=== PATIENT | male | born 1990 | race Caucasian/White ===

== ENCOUNTER 2017-10-12 15:20 | Inpatient (IN) | payer BC, OTHER ==
[~2017-10-12] VITALS: Wt 114.3 kg
[2017-10-12] MEDS ORDERED: ONDANSETRON 4 MG INJ IV STA (16:01)
[2017-10-12] MEDS ORDERED: SOD CHLORIDE 0.9% 1,000 ML IV STA (16:01)
[2017-10-12] MEDS ORDERED: ACETAMINOPHEN 500 MG TAB PO STA (16:01)
[2017-10-12] MEDS ORDERED: HYDROmorphONE 1 MG/ML SYG IV STA (16:01)
--- NOTE | 2017-10-12 16:08 | ERD ---
ER Documentation Chief Complaint Chief Complaint BIB EMS R. SIDED ABD PAIN W N/V/D HPI 27 year old male brought in by rescue with a history H pylori, presents emergency department with right-sided abdominal pain with fever, nausea, vomiting and diarrhea beginning yesterday. Pain is severe on the right side, sharp and achy, it is in the right upper quadrant radiating to the right lower quadrant epigastric region, patient has had a fever as well and reports multiple episodes of yellow colored vomit, no blood in the vomit. Stools have been loose, there is no blood or mucus. ROS All systems reviewed and are negative except as per history of present illness. Medications Home Meds No Active Prescriptions or Reported Meds Allergies Allergies: Coded Allergies: No Known Allergy (Unverified , 07/31/12) PMhx/Soc History of Surgery: No Anesthesia Reaction: No Hx Neurological Disorder: No Hx Respiratory Disorders: No Hx Cardiac Disorders: No Hx Psychiatric Problems: No Hx Miscellaneous Medical Probl: No Hx Alcohol Use: No Hx Substance Use: No Hx Tobacco Use: No Physical Exam Vitals Vital Signs Date Time Temp Pulse Resp B/P Pulse Ox O2 Delivery O2 Flow Rate FiO2 10/12/17 15:24 101.0 98 20 142/84 97 Physical Exam General: Well-developed, well-nourished. The patient appears in no acute distress. HEENT: Head is normocephalic, atraumatic. No scleral icterus. Neck: Supple. Nontender. Lungs: Clear to auscultation. Normal air movement. Heart: Regular rate and rhythm. S1 and S2 are normal. No murmurs, gallops, or rubs. Abdomen: Soft, diffuse tenderness on the right side, greater in the right lower quadrant, nondistended. Bowel sounds are normoactive. There is no hepatosplenomegaly Extremities: No clubbing or cyanosis. Normal pulses. Moving extremities x 4. No weakness. Neurologic: Alert and oriented 3. No focal deficits. Skin: Normal turgor. No rash or lesions. Result Diagram: 10/12/17 2015 10/12/17 1655 Results 24 hrs Laboratory Tests Test 10/12/17 16:55 White Blood Count 12.310^3/ul Red Blood Count 4.6710^6/ul Hemoglobin 14.8g/dl Hematocrit 44.5% Mean Corpuscular Volume 95.3fl Mean Corpuscular Hemoglobin 31.7pg Mean Corpuscular Hemoglobin Concent 33.3g/dl Red Cell Distribution Width 12.7% Platelet Count 58394^3/UL Mean Platelet Volume 9.6fl Neutrophils % 90.9% Lymphocytes % 5.7% Monocytes % 2.9% Eosinophils % 0.0% Basophils % 0.2% Nucleated Red Blood Cells % 0.0/100WBC Neutrophils # 11.110^3/ul Lymphocytes # 0.710^3/ul Monocytes # 0.410^3/ul Eosinophils # 0.010^3/ul Basophils # 0.010^3/ul Nucleated Red Blood Cells # 0.010^3/ul Sodium Level 141mmol/L Potassium Level 4.2mmol/L Chloride Level 100mmol/L Carbon Dioxide Level 29mmol/L Anion Gap 16 Blood Urea Nitrogen 12mg/dl Creatinine 0.94mg/dl Glucose Level 135mg/dl Calcium Level 9.4mg/dl Total Bilirubin 0.9mg/dl Direct Bilirubin 0.00mg/dl Indirect Bilirubin 0.9mg/dl Aspartate Amino Transf (AST/SGOT) 22IU/L Alanine Aminotransferase (ALT/SGPT) 38IU/L Alkaline Phosphatase 80IU/L Total Protein 7.5g/dl Albumin 4.5g/dl Globulin 3.00g/dl Albumin/Globulin Ratio 1.50 Lipase 54U/L Current Medications Medications (Trade) Dose Ordered Sig/Janeen Route PRN Reason Start Time Stop Time Status Last Admin Dose Admin Sodium Chloride (NS) 1,000 ml @ 1,000 mls/hr Q1H STAT IV 10/12/17 16:01 10/12/17 17:00 DC 10/12/17 16:53 Hydromorphone HCl (Dilaudid) 1 mg ONCE STAT IV 10/12/17 16:01 10/12/17 16:04 DC 10/12/17 16:51 Ondansetron HCl (Zofran Inj) 4 mg ONCE STAT IV 10/12/17 16:01 10/12/17 16:04 DC 10/12/17 16:51 Acetaminophen 1000 mg 1,000 mg ONCE STAT PO 10/12/17 16:01 10/12/17 16:04 DC 10/12/17 16:51 Ampicillin Sodium/ Sulbactam Sodium 100 ml @ 100 mls/hr ONCE ONCE IVPB 10/12/17 18:30 10/12/17 19:29 Sodium Chloride 1,000 ml @ 1,000 mls/hr Q1H ONCE IV 10/12/17 18:30 10/12/17 19:29 Sodium Chloride 1,000 ml @ 1,000 mls/hr Q1H ONCE IV 10/12/17 18:30 10/12/17 19:29 Sodium Chloride (NS) 250 ml @ 250 mls/hr Q1H ONCE IV 10/12/17 18:30 10/12/17 19:29 DIAGNOSTIC IMAGING REPORT Patient: NEEL LUJAN : 1990 Age: 27 Sex: M MR #: [id number] DOS: 10/12/17 1601 Ordering MD: GERTRUDE YANEZ PA-C Location: [facility] Room/Bed: PROCEDURE: CT abdomen and pelvis without contrast. CLINICAL INDICATION: Right-sided abdominal pain. TECHNIQUE: CT of the abdomen and pelvis was performed without contrast. Coronal and sagittal reformatted images were obtained from the axial source images. Images were reviewed on a high-resolution PACS workstation. The total exam CTDI equals 23.43 mGy and the total exam DLP equals 1551.91 mGy-cm. DICOM images are available. Evaluation is partially limited due to artifact from the patient's arms being at the patient's side. One or more of the following dose reduction techniques were used: - Automated exposure control. - Adjustment of the mA and/or kV according to patient size. - Use of iterative reconstruction technique. COMPARISON: None available. FINDINGS: Visualized lower thorax: The visualized lung bases are clear. The visualized heart is unremarkable. Hepatobiliary system and spleen: The liver is grossly unremarkable. There is no intra or extrahepatic biliary ductal dilatation. The gallbladder is distended and there is gallbladder wall thickening with pericholecystic inflammatory change and fluid, consistent with cholecystitis. The spleen is grossly unremarkable. The pancreas is grossly unremarkable. Adrenal glands and genitourinary system: The adrenal glands are grossly unremarkable. There is no nephrolithiasis or hydronephrosis. The urinary bladder is grossly unremarkable. The prostate gland and seminal vesicles are grossly unremarkable. Gastrointestinal system: There is colonic wall thickening at the hepatic flexure adjacent to the gallbladder, likely reactive in nature. There is no evidence of bowel obstruction. The appendix is mildly dilated measuring 8 mm in diameter in the right lower quadrant without focal periappendiceal inflammatory change. Peritoneum, vascular, and lymphatics: There is no free intraperitoneal air. There is inflammatory change in the right midabdomen mesentery with a small amount of free fluid layering within the pelvis, possibly reactive in nature. No focal drainable collection is seen within the abdomen or pelvis. There are enlarged periportal and portacaval lymph nodes, likely reactive in nature. The aorta is nonaneurysmal. Musculoskeletal system and soft tissues: There are multiple small Schmorl's nodes throughout the thoracic and lumbar spine. There are no concerning osseous lesions. The soft tissues are unremarkable. IMPRESSION: 1. Distended gallbladder demonstrating wall thickening and pericholecystic inflammatory change. This constellation of findings is highly suspicious for acute cholecystitis. Right upper quadrant ultrasound is recommended for confirmation. 2. Inflammatory change in the right midabdomen mesentery with a small volume of free fluid layering within the pelvis, likely reactive in nature. Thickening of the colon at the hepatic flexure adjacent to the gallbladder, also likely reactive in nature. 3. Nonspecific mild dilatation of the appendix measuring 8 mm in diameter without focal periappendiceal inflammatory change. Correlation with physical exam is recommended. 4. Periportal and portacaval adenopathy, likely reactive in nature. These findings discussed with Ada Zapata NP in the ED at 1809 hours on 2016. RPTAT: HLBP .Umberto Ogden MD, MD Date Time Electronically viewed and signed by .Umberto Ogden MD, MD on 10/12/2017 18:15 .P/ Procedures/MDM ED course: Patient blood work and urine were obtained. Patient was kept n.p.o. and was given Dilaudid 1 mg, Zofran 4 mg and a fluid bolus of normal saline 1 L. Was then ordered Unasyn, as well as the remaining fluids to receive a total of 2550cc Medical decision makin-year-old female presents with right-sided abdominal pain with fever, nausea, vomiting diarrhea starting yesterday. Patient called rescue due to severe pain. Patient has evidence of acute cholecystitis on the CT abdomen and pelvis, the appendix is mildly developed rotated at 8 mm, without evidence of periappendiceal changes. He does have right lower quadrant tenderness, will consult surgery for this. The patient will be admitted for surgical evaluation. Patient's admission further care will be signed out to my attending physician, Dr. Tinoco Departure Diagnosis: Primary Impression: Acute cholecystitis Additional Impression: Leukocytosis Condition: Stable GERTRUDE YANEZ PA-C Oct 12, 2017 16:08
[2017-10-12 17:08] LABS: BASOPHILS % 0.2 % (0.0-2.0); HEMATOCRIT 44.5 % (42.0-52.0); HEMOGLOBIN 14.8 g/dl (14.0-18.0); LYMPHOCYTES # 0.7 10^3/ul (0.8-2.9); LYMPHOCYTES % 5.7 % (15.0-51.0); MEAN CORPUSCULAR HEMOGLOBIN 31.7 pg (29.0-33.0); MEAN CORPUSCULAR HGB CONC 33.3 g/dl (32.0-37.0); MEAN CORPUSCULAR VOLUME 95.3 fl (82.0-101.0); MEAN PLATELET VOLUME 9.6 fl (7.4-10.4); MONOCYTE # 0.4 10^3/ul (0.3-0.9); MONOCYTES % 2.9 % (0.0-11.0); NEUTROPHIL # 11.1 10^3/ul (1.6-7.5); NEUTROPHILS % 90.9 % (39.0-77.0); PLATELET COUNT 283 10^3/UL (140-415); RED BLOOD COUNT 4.67 10^6/ul (4.70-6.10); RED CELL DISTRIBUTION WIDTH 12.7 % (11.5-14.5); WHITE BLOOD COUNT 12.3 10^3/ul (4.8-10.8)
[2017-10-12 17:27] LABS: ALBUMIN 4.5 g/dl (3.3-4.9); ALBUMIN/GLOBULIN RATIO 1.5; BILIRUBIN,INDIRECT 0.9 mg/dl (0-1.1); BILIRUBIN,TOTAL 0.9 mg/dl (0.2-1.3); CALCIUM 9.4 mg/dl (8.4-10.2); CREATININE 0.94 mg/dl (0.61-1.24); POTASSIUM 4.2 mmol/L (3.5-5.1); TOTAL PROTEIN 7.5 g/dl (6.1-8.1)
--- NOTE | 2017-10-12 18:16 | RADRPT ---
PROCEDURE: CT abdomen and pelvis without contrast. CLINICAL INDICATION: Right-sided abdominal pain. TECHNIQUE: CT of the abdomen and pelvis was performed without contrast. Coronal and sagittal reform atted images were obtained from the axial source images. Images were reviewed on a high-resolution [employer] workstation. The total exam CTDI equals 23.43 mGy and the total exam DLP equals 1551.91 mGy-cm. DICOM images are available. Evaluation is partially limited due to artifact from the patient's arms being at the patient's side. One or more of the following dose reduction techniques were used: - Automated exposure control. - Adjustment of the mA and/or kV according to patient size. - Use of iterative reconstruction technique. COMPARISON: None available. FINDINGS: Visualized lower thorax: The visualized lung bases are clear. The visualized heart is unremarkable. Hepatobiliary system and spleen: The liver is grossly unremarkable. There is no intra or extrahepat ic biliary ductal dilatation. The gallbladder is distended and there is gallbladder wall thickening with pericholecystic inflammatory change and fluid, consistent with cholecystitis. The spleen is lynsey ssly unremarkable. The pancreas is grossly unremarkable. Adrenal glands and genitourinary system: The adrenal glands are grossly unremarkable. There is no n ephrolithiasis or hydronephrosis. The urinary bladder is grossly unremarkable. The prostate gland an d seminal vesicles are grossly unremarkable. Gastrointestinal system: There is colonic wall thickening at the hepatic flexure adjacent to the ga llbladder, likely reactive in nature. There is no evidence of bowel obstruction. The appendix is mil dly dilated measuring 8 mm in diameter in the right lower quadrant without focal periappendiceal inf lammatory change. Peritoneum, vascular, and lymphatics: There is no free intraperitoneal air. There is inflammatory c hange in the right midabdomen mesentery with a small amount of free fluid layering within the pelvis , possibly reactive in nature. No focal drainable collection is seen within the abdomen or pelvis. T here are enlarged periportal and portacaval lymph nodes, likely reactive in nature. The aorta is non aneurysmal. Musculoskeletal system and soft tissues: There are multiple small Schmorl's nodes throughout the th oracic and lumbar spine. There are no concerning osseous lesions. The soft tissues are unremarkable. IMPRESSION: 1. Distended gallbladder demonstrating wall thickening and pericholecystic inflammatory change. Thi s constellation of findings is highly suspicious for acute cholecystitis. Right upper quadrant ultra sound is recommended for confirmation. 2. Inflammatory change in the right midabdomen mesentery with a small volume of free fluid layering within the pelvis, likely reactive in nature. Thickening of the colon at the hepatic flexure adjace nt to the gallbladder, also likely reactive in nature. 3. Nonspecific mild dilatation of the appendix measuring 8 mm in diameter without focal periappendi ceal inflammatory change. Correlation with physical exam is recommended. 4. Periportal and portacaval adenopathy, likely reactive in nature. These findings discussed with Ada Zapata NP in the ED at 1809 hours on 10/12/2017. RPTAT: HLBP .Umberto Ogden MD, MD Date Time Electronically viewed and signed by .Umberto Ogden MD, on 10/12/2017 18:15 .P/
[2017-10-12] MEDS ORDERED: SOD CHLORIDE 0.9% 1,000 ML IV ONE ×2 (18:30)
[2017-10-12] MEDS ORDERED: AMPICILLIN/SULB 3 GM/NS (PMX) 100 ML IVPB ONE (18:30)
[2017-10-12] MEDS ORDERED: SOD CHLORIDE 0.9% 250 ML IV ONE (18:30)
[2017-10-12 19:17] LABS: ADD UMIC YES; UR ASCORBIC ACID NEGATIVE (NEGATIVE); UR BILIRUBIN (Dip) NEGATIVE (NEGATIVE); UR BLOOD (Dip) 2+ mg/dL (NEGATIVE); UR CLARITY SLIGHTLY CLOUDY (CLEAR); UR COLOR YELLOW (YELLOW); UR GLUCOSE (Dip) NEGATIVE (NEGATIVE); UR KETONES (Dip) NEGATIVE (NEGATIVE); UR LEUKOCYTE ESTERASE (Dip) NEGATIVE Leu/ul (NEGATIVE); UR MUCUS MANY /HPF (NONE SEEN); UR NITRITE (Dip) NEGATIVE (NEGATIVE); UR RBC 15 /HPF (0-5); UR SPECIFIC GRAVITY (Dip) 1.021 (1.003-1.030); UR TOTAL PROTEIN (Dip) NEGATIVE (NEGATIVE); UR UROBILINOGEN (Dip) NEGATIVE (NEGATIVE)
--- NOTE | 2017-10-12 19:18 | RADRPT ---
PROCEDURE: XR Chest. CLINICAL INDICATION: Preop evaluation. TECHNIQUE: Single frontal view of the chest was obtained COMPARISON: None FINDINGS: The heart and mediastinum are within normal limits. The lungs are clear. There is no pleural effusion or pneumothorax. The osseous structures are unremarkable. IMPRESSION: 1. No acute cardiopulmonary disease. RPTAT:AAJJ Physician Man Date Time Electronically viewed and signed by Tanmay Parikh Physician on 10/12/2017 19:17 QL/
[2017-10-12] MEDS ORDERED: ONDANSETRON 4 MG INJ IV PRN ×2 (19:30→21:00)
[2017-10-12] MEDS ORDERED: ACETAMINOPHEN 325 MG TAB PO PRN ×2 (19:30→21:00)
--- NOTE | 2017-10-12 19:39 | QN ---
Documentation Comment My independent concise history is abdominal pain in the right upper and right lower quadrant. My pertinent physical exam findings are right-sided abdominal pain. The plan is admission to the panel team and consultation with Dr. Tirado who is a surgeon on-call. RENUKA BONE MD Oct 12, 2017 19:39
[2017-10-12 21:00] VITALS: TEMP 101.6
[2017-10-12] MEDS ORDERED: HYDROmorphONE 0.5 MG/0.5 ML SYG IV PRN (21:00)
[2017-10-12] MEDS ORDERED: NACL 0.9% 3 ML SYG IV SCH (21:00)
[2017-10-12] MEDS: SOD CHLORIDE 0.9% 1,000 ML IV SCH (22:02)
--- NOTE | 2017-10-12 23:39 | HP ---
Date/Time of Note Date/Time of Note DATE: 10/12/17 TIME: 23:38 Assessment/Plan VTE Prophylaxis VTE Prophylaxis Intervention: SCD's Assessment/Plan Chief Complaint/Hosp Course This is a 27-year-old male being admitted to the [facility] floor for: #1 acute cholecystitis: zosyn 3.375 q6hrs, received unasyn in the ed. Keep patient NPO, zofran for nausea, IV fluid maintenance with normal saline, dilaudid IV for pain control. Dr. Tirado consulted via the ED for surgery. #2 obesity: Check hemoglobin A1c, TSH, lipid panel #3 DVT GI prophylaxis: SCDs, no GI prophylaxis indicated Further treatment strategy will be implemented as per the clinical course Problems: HPI/ROS Admit Date/Time Admit Date/Time Oct 12, 2017 at 19:18 Hx of Present Illness cc: abdominal pain This is a 27 year old male brought in by rescue with a history H pylori, presents emergency department with right-sided abdominal pain with fever, nausea , vomiting and diarrhea beginning thursday. Pain is severe on the right side, sharp and achy, it is in the right upper quadrant radiating to the right lower quadrant epigastric region, patient has had a fever as well and reports multiple episodes of yellow colored vomit, no blood in the vomit. Stools have been loose, there is no blood or mucus. allergies: nkda meds: none ROS Const: As per HPI Eyes : No pain discharge or redness or change in visual acuity ENT: No pain, sore throat, congestion, congestion, dysphagia or discharge Respiratory: No shortness of breath, cough, sputum, wheezing, or pleuritic pain Cardiovascular: No chest pain, palpitation, PND, or edema GI : As per HPI Genitourinary: No dysuria, hematuria, flank pain , discharge or CVA tenderness Musculoskeletal: No joint pain, back pain, neck pain, restricted range of motion in neck or joints Skin: No rash, bruising or hives Neuro: No headache, dizziness, syncope, seizure, focal weakness Endocrine: No polyuria, polydipsia, temperature intolerance Psych: No hallucination, depression, anxiety or suicidal ideation PMH/Family/Social Past Medical History Medical History: no pertinent history Past Surgical History Past Surgical Hx: no surgical history Family History Significant Family History: no pertinent family hx Social History Alcohol Use: occasionally Smoking Status: Never smoker Drug Use: none Exam/Review of Systems Vital Signs Vitals Vital Signs Date Time Temp Pulse Resp B/P Pulse Ox O2 Delivery O2 Flow Rate FiO2 10/12/17 21:00 101.6 111 18 123/66 100 Room Air Exam Exam General: Patient is a well-developed male lying in bed in abdominal pain HEENT: Atraumatic, normocephalic. The pupils are equal, round and reactive. Extraocular motor are intact Neck: Supple with full range of motion. No rigidity or meningismus Chest: Nontender Lungs: Clear to auscultation bilaterally no crackles rales or wheezing Heart: Normal S1-S2, Regular rhythm and rate. No murmur, S3, or S4 Abdomen: Soft, tender to palpation of the right upper quadrant, nondistended, normal bowel sounds. Extremities: Normal to inspection, no edema no cyanosis Neurologic: Normal mental status, speech normal, cranial nerves II through XII are intact, motor and sensory are intact, no focal weakness Additional Comments PROCEDURE: CT abdomen and pelvis without contrast. CLINICAL INDICATION: Right-sided abdominal pain. TECHNIQUE: CT of the abdomen and pelvis was performed without contrast. Coronal and sagittal reformatted images were obtained from the axial source images. Images were reviewed on a high-resolution PACS workstation. The total exam CTDI equals 23.43 mGy and the total exam DLP equals 1551.91 mGy-cm. DICOM images are available. Evaluation is partially limited due to artifact from the patient's arms being at the patient's side. One or more of the following dose reduction techniques were used: - Automated exposure control. - Adjustment of the mA and/or kV according to patient size. - Use of iterative reconstruction technique. COMPARISON: None available. FINDINGS: Visualized lower thorax: The visualized lung bases are clear. The visualized heart is unremarkable. Hepatobiliary system and spleen: The liver is grossly unremarkable. There is no intra or extrahepatic biliary ductal dilatation. The gallbladder is distended and there is gallbladder wall thickening with pericholecystic inflammatory change and fluid, consistent with cholecystitis. The spleen is grossly unremarkable. The pancreas is grossly unremarkable. Adrenal glands and genitourinary system: The adrenal glands are grossly unremarkable. There is no nephrolithiasis or hydronephrosis. The urinary bladder is grossly unremarkable. The prostate gland and seminal vesicles are grossly unremarkable. Gastrointestinal system: There is colonic wall thickening at the hepatic flexure adjacent to the gallbladder, likely reactive in nature. There is no evidence of bowel obstruction. The appendix is mildly dilated measuring 8 mm in diameter in the right lower quadrant without focal periappendiceal inflammatory change. Peritoneum, vascular, and lymphatics: There is no free intraperitoneal air. There is inflammatory change in the right midabdomen mesentery with a small amount of free fluid layering within the pelvis, possibly reactive in nature. No focal drainable collection is seen within the abdomen or pelvis. There are enlarged periportal and portacaval lymph nodes, likely reactive in nature. The aorta is nonaneurysmal. Musculoskeletal system and soft tissues: There are multiple small Schmorl's nodes throughout the thoracic and lumbar spine. There are no concerning osseous lesions. The soft tissues are unremarkable. IMPRESSION: 1. Distended gallbladder demonstrating wall thickening and pericholecystic inflammatory change. This constellation of findings is highly suspicious for acute cholecystitis. Right upper quadrant ultrasound is recommended for confirmation. 2. Inflammatory change in the right midabdomen mesentery with a small volume of free fluid layering within the pelvis, likely reactive in nature. Thickening of the colon at the hepatic flexure adjacent to the gallbladder, also likely reactive in nature. 3. Nonspecific mild dilatation of the appendix measuring 8 mm in diameter without focal periappendiceal inflammatory change. Correlation with physical exam is recommended. 4. Periportal and portacaval adenopathy, likely reactive in nature. These findings discussed with Ada Zapata NP in the ED at 1809 hours on 2016. RPTAT: HLBP .Umberto Ogden MD, MD Date Time Electronically viewed and signed by .Umberto Ogden MD, MD on 10/12/2017 18:15 .P/ CC: GERTRUDE YANEZ PA-C PROCEDURE: XR Chest. CLINICAL INDICATION: Preop evaluation. TECHNIQUE: Single frontal view of the chest was obtained COMPARISON: None FINDINGS: The heart and mediastinum are within normal limits. The lungs are clear. There is no pleural effusion or pneumothorax. The osseous structures are unremarkable. IMPRESSION: 1. No acute cardiopulmonary disease. RPTAT:AAJJ Tanmay Parikh Physician Date Time Electronically viewed and signed by Tanmay Parikh Physician on 10/12/2017 19:17 QL/ CC: GERTRUDE YANEZ PA-C Labs Result Diagram: 10/12/17165410/12/171654 Medications Medications Current Medications Sodium Chloride (NS) 1,000 ml @ 80 mls/hr [id number] IV Last administered on 22:02; Admin Dose 80 MLS/HR; Start 10/12/17 at 20:32 Ondansetron HCl (Zofran Inj) 4 mg Q6H PRN IV NAUSEA AND/OR VOMITING; Start at 21:00 Acetaminophen (Tylenol Tab) 650 mg Q6H PRN PO PAIN LEVEL 1-3 OR FEVER; Start 10/12/17 at 21:00 Hydromorphone HCl (Dilaudid) 0.5 mg Q4H PRN IV SEVERE PAIN LEVEL 7-10 Last administered on 10/12/17 21:07; Admin Dose 0.5 MG; Start 10/12/17 at 21:00 Pantoprazole 40 mg 40 mg DAILY@06 IV ; Start 10/13/17 at 06:00 Piperacillin Sod/ Tazobactam Sod (Zosyn 3.375gm/ 50 ml (Pmx)) 50 ml @ 100 mls/ hr Q6 IVPB ; Start 10/13/17 at 00:00 SUE DUMONT Oct 12, 2017 23:39
[2017-10-13] VITALS (27 sets, daily range): BP systolic 109–132; BP diastolic 54–78; PULSE 83–117; RESP 14–23
[2017-10-13] MEDS: HYDROmorphONE 1 MG/ML SYG IV PRN ×4 (00:12→21:32)
[2017-10-13] MEDS ORDERED: HYDROmorphONE 1 MG/ML SYG ONE (00:15)
[2017-10-13] MEDS: PIPER-TAZO 3.375 GM IV (PMX) 50 ML IVPB SCH ×4 (00:44→19:45)
[2017-10-13 05:17] LABS: BASOPHILS % 0.2 % (0.0-2.0); HEMATOCRIT 37.7 % (42.0-52.0); HEMOGLOBIN 12.6 g/dl (14.0-18.0); LYMPHOCYTES # 0.7 10^3/ul (0.8-2.9); MEAN CORPUSCULAR HEMOGLOBIN 31.9 pg (29.0-33.0); MEAN CORPUSCULAR HGB CONC 33.4 g/dl (32.0-37.0); MEAN CORPUSCULAR VOLUME 95.4 fl (82.0-101.0); MONOCYTE # 0.9 10^3/ul (0.3-0.9); MONOCYTES % 7.4 % (0.0-11.0); NEUTROPHIL # 10.6 10^3/ul (1.6-7.5); PLATELET COUNT 205 10^3/UL (140-415); RED BLOOD COUNT 3.95 10^6/ul (4.70-6.10); RED CELL DISTRIBUTION WIDTH 12.5 % (11.5-14.5); WHITE BLOOD COUNT 12.4 10^3/ul (4.8-10.8)
[2017-10-13 05:43] LABS: ALBUMIN 3.4 g/dl (3.3-4.9); ALBUMIN/GLOBULIN RATIO 1.06; BILIRUBIN,INDIRECT 1.1 mg/dl (0-1.1); BILIRUBIN,TOTAL 1.1 mg/dl (0.2-1.3); CALCIUM 8.5 mg/dl (8.4-10.2); CREATININE 0.99 mg/dl (0.61-1.24); MAGNESIUM 1.2 mg/dl (1.7-2.5); POTASSIUM 4.3 mmol/L (3.5-5.1); TOTAL PROTEIN 6.6 g/dl (6.1-8.1)
[2017-10-13] MEDS ORDERED: PANTOPRAZOLE 40 MG INJ IV SCH (06:00)
[2017-10-13 06:08] LABS: THYROID STIMULATING HORMONE 0.467 MIU/L (0.465-4.680)
[2017-10-13] MEDS ORDERED: HYDROmorphONE 1 MG/ML SYG IV STA (06:08)
[2017-10-13] MEDS ORDERED: HYDROmorphONE 1 MG/ML SYG IV PRN (09:00)
[2017-10-13] MEDS: SOD CHLORIDE 0.9% 1,000 ML IV SCH (09:02)
[2017-10-13] MEDS ORDERED: PROPOFOL 20 ML ONE (09:46)
[2017-10-13] MEDS ORDERED: MIDAZOLAM 1 MG/ML 2 ML INJ ONE (09:46)
[2017-10-13] MEDS ORDERED: ONDANSETRON 4 MG INJ ONE (09:46)
[2017-10-13] MEDS ORDERED: ROCURONIUM 50 MG INJ ONE ×2 (09:46→10:37)
[2017-10-13] MEDS ORDERED: METOCLOPRAMIDE 10 MG INJ ONE (09:46)
[2017-10-13] MEDS ORDERED: FENTAnyl 50 MCG/ML VIAL ONE (09:47)
[2017-10-13] MEDS ORDERED: PIPER-TAZO 3.375 GM IV (PMX) 100 ML ONE (09:48)
--- NOTE | 2017-10-13 09:52 | HPN ---
Date/Time of Note Date/Time of Note DATE: 10/13/17 TIME: 09:52 Interval H&P Admission Note Pt. seen H&P reviewed: No system changes Pt. seen H&P reviewed. No system changes (I attest that I have seen and examined the patient and reviewed the operation in detail, as well as its risks , benefits and alternatives of the operation). I attest that I have seen and examined the patient and reviewed in detail the operation, and its associated risks, benefits and alternative. I have answered all the patient's questions to the best of my ability and the patient wishes to proceed. Please refer to rest of electronic medical record for additional updates. TAL ACKERMAN M.D. Oct 13, 2017 09:52
--- NOTE | 2017-10-13 09:52 | CONS ---
Date/Time of Note Date/Time of Note DATE: 10/13/17 TIME: 09:52 Assessment/Plan Assessment/Plan Additional Assessment/Plan [facility] IN[facility]IENT CONSULTATION NOTE DATE OF SERVICE: 10/13/2017 PLACE OF SERVICE: [facility], preoperative area ASSESSMENT AND PLAN: A very-pleasant 27-year-old gentleman with comorbidity of BMI 35, presenting with severe acute cholecystitis. I recommended and obtained patient's consent for laparoscopic, possible open cholecystectomy. Answered all questions. Patient and his mother appear to understand and agreed with plans. With above assessment, I've recommended the followin. To the operating room for above Thank you very much for having me involved in the care of this very pleasant patient and wonderful family. If you have any questions, please feel free to contact me at [phone]. Nature of presenting problem: High severity Please note that, given the multiple number of diagnoses or management options, the moderate amount and/or complexity of data needed to be reviewed, and high risk of complications and/or morbidity or mortality, this qualifies as moderate complexity type of decision-making. Disclaimers: 1. Inadvertent spelling and grammatical errors are likely due to electronic health record (EHR)/dictation software used and do not reflect on the quality of delivered patient care. 2. The electronic timestamp recorded on this note does not necessarily reflect the actual date and time of the visit or the service. 3. Portions of this note may have been created through electronic templates and computer algorithms that might bring in information either from the system or from other physicians and providers. Please note that such information may or may not contain errors, the occurrence of which are outside of my control. In general (but not always) this happens either in the beginning or at the end of the note. The portion of the note that I have created are generally done in 1 continuous block of text, flanked at the beginning and at the end by " ", and entered into one field in the EHR. 4. There may be other unanticipated errors in the note that are outside of my control. I can only attest to the portions of the note that I have created. Updated clinical summary: Very pleasant 27-year-old gentleman with comorbidity of BMI 35, admitted through the emergency department at [facility] on 10/12/2017 with acute cholecystitis. Comorbidities: 1. BMI 35. CONSULTATION REQUESTED BY: Cely Garcia MD HISTORY OF PRESENT ILLNESS: The patient is a very pleasant 27-year-old gentleman with above-mentioned BMI of 35 who presented and was admitted through the emergency department at [facility] on 10/12/2017 with diagnosis of acute cholecystitis. Patient started having pain about 3-4 days ago and was seen by an urgent care clinic that diagnosed him with possible reflux disease or peptic ulcer disease and was given pain medications and antimicrobials. He did improve but then worsened and was admitted through the emergency department after his laboratory values demonstrated elevated white blood cell count and his CT scan showed evidence for acute cholecystitis. I met with the patient in the preoperative area. Patient was accompanied by his mother. He reported having ongoing pain in the right upper quadrant which seemed to have improved with intervention overnight. Pain was still present. No significant radiation. Associated nausea and vomiting which was nonbloody and minor chills. No changes in bowel or bladder habits. No blood in the stool or urine. No other major complaints. No prior episodes of similar pain in the past. ALLERGIES: NO KNOWN DRUG ALLERGIES MEDICATIONS Documented in the electronic records and reviewed by me. Please see the electronic records for details, as well as details for inpatient medications which were also reviewed by me. SOCIAL HISTORY: The patient lives with family. 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 REVIEW OF SYSTEMS: Other than mentioned above, there were no other pertinent positives or pertinent negatives in an otherwise complete 14 point review of systems. PHYSICAL EXAMINATION GENERAL: The patient appears to be a very pleasant gentleman of descent lying in bed, appearing stated age, and otherwise in no acute distress. BMI: 35 VITAL SIGNS: AVSS (please also see auto important data if available as well as the electronic records) HEENT: Normocephalic and atraumatic. Extraocular muscles and hearing are grossly intact bilaterally and symmetrically. Sclerae are nonicteric. Oral cavity is clear; oral mucosa appear to be pink and moist. Dentition: fair. NECK: Supple. There is no lymphadenopathy or JVD. There is no submental, submandibular or supraclavicular lymphadenopathy. CHEST: Rises symmetrically with each breath; patient is breathing comfortably. There are no audible wheezes, rales or rhonchi on the gross exam. HEART: Pulse is regular and palpable on the right wrist. Capillary refill is normal. Carotid pulses are palpable bilaterally and symmetrically in the neck. EXTREMITIES: Lower extremities contain no pitting edema around the ankles bilaterally and symmetrically. ABDOMEN: Abdomen is soft, mild to moderately tender in the right upper quadrant and nondistended. No evidence of ascites, organomegaly, caput medusae , engorged subcutaneous veins, or other abnormalities. There are no peritoneal signs or guarding. SKIN: Appears to be pink and feels warm to touch. NEUROLOGIC: Awake, alert, and follows commands appropriately. LABORATORY DATA: See below IMAGING: See electronic chart. Please note that I've personally reviewed all pertinent available images and I agree in general with their overall reported findings. Consultation Date/Type/Reason Admit Date/Time Oct 12, 2017 at 19:18 Past Medical History Medical History: no pertinent history Past Surgical History Past Surgical Hx: no surgical history Social History Alcohol Use: occasionally Smoking Status: Never smoker Drug Use: none Exam/Review of Systems Vital Signs Vitals Vital Signs Date Time Temp Pulse Resp B/P Pulse Ox O2 Delivery O2 Flow Rate FiO2 10/13/17 08:31 100.3 113 18 112/61 94 10/12/17 21:00 Room Air Intake and Output 10/12/17 10/12/17 10/13/17 15:00 23:00 07:00 Intake Total 100 ml Balance 100 ml Results Result Diagram: 10/13/17 0447 10/13/17 0447 Results 24 hrs Laboratory Tests Test 10/12/17 16:55 10/12/17 18:58 10/12/17 19:40 10/13/17 04:47 White Blood Count 12.3 H 12.4 H Red Blood Count 4.67 L 3.95 L Hemoglobin 14.8 12.6 L Hematocrit 44.5 37.7 L Mean Corpuscular Volume 95.3 95.4 Mean Corpuscular Hemoglobin 31.7 31.9 Mean Corpuscular Hemoglobin Concent 33.3 33.4 Red Cell Distribution Width 12.7 12.5 Platelet Count 283 205 # Mean Platelet Volume 9.6 10.0 Neutrophils % 90.9 H 86.0 H Lymphocytes % 5.7 L 6.0 L Monocytes % 2.9 7.4 Eosinophils % 0.0 0.0 Basophils % 0.2 0.2 Nucleated Red Blood Cells % 0.0 0.0 Neutrophils # 11.1 H 10.6 H Lymphocytes # 0.7 L 0.7 L Monocytes # 0.4 0.9 Eosinophils # 0.0 0.0 Basophils # 0.0 0.0 Nucleated Red Blood Cells # 0.0 0.0 Sodium Level 141 142 Potassium Level 4.2 4.3 Chloride Level 100 106 Carbon Dioxide Level 29 28 Anion Gap 16 12 Blood Urea Nitrogen 12 12 Creatinine 0.94 0.99 Glucose Level 135 105 Calcium Level 9.4 8.5 Total Bilirubin 0.9 1.1 Direct Bilirubin 0.00 0.00 Indirect Bilirubin 0.9 1.1 Aspartate Amino Transf (AST/SGOT) 22 18 Alanine Aminotransferase (ALT/SGPT) 38 35 Alkaline Phosphatase 80 51 Total Protein 7.5 6.6 Albumin 4.5 3.4 # Globulin 3.00 3.20 Albumin/Globulin Ratio 1.50 1.06 Lipase 54 Urine Color YELLOW Urine Clarity SLIGHTLY CLOUDY A Urine pH 5.0 Urine Specific [place] 1.021 Urine Ketones NEGATIVE Urine Nitrite NEGATIVE Urine Bilirubin NEGATIVE Urine Urobilinogen NEGATIVE Urine Leukocyte Esterase NEGATIVE Urine Microscopic RBC 15 H Urine Microscopic WBC 4 Urine Mucus MANY A Urine Hemoglobin 2+ H Urine Glucose NEGATIVE Urine Total Protein NEGATIVE Lactic Acid Level 1.3 Hemoglobin A1c 5.0 Magnesium Level 1.2 L Triglycerides Level 40 Cholesterol Level 93 L LDL Cholesterol, Calculated 40 HDL Cholesterol 45 Cholesterol/HDL Ratio 2.0 Thyroid Stimulating Hormone (TSH) 0.467 Medications Medications Current Medications Sodium Chloride (NS) 1,000 ml @ 80 mls/hr [id number] IV Last administered on t 22:02; Admin Dose 80 MLS/HR; Start 10/12/17 at 20:32 Ondansetron HCl (Zofran Inj) 4 mg Q6H PRN IV NAUSEA AND/OR VOMITING; Start at 21:00 Acetaminophen (Tylenol Tab) 650 mg Q6H PRN PO PAIN LEVEL 1-3 OR FEVER Last administered on 10/13/17 08:55; Admin Dose 650 MG; Start 10/12/17 at 21:00 Pantoprazole 40 mg 40 mg DAILY@06 IV Last administered on 10/13/17 05:51; Admin Dose 40 MG; Start 10/13/17 at 06:00 Piperacillin Sod/ Tazobactam Sod (Zosyn 3.375gm/ 50 ml (Pmx)) 50 ml @ 100 mls/ hr Q6 IVPB Last administered on 10/13/17 05:51; Admin Dose 100 MLS/HR; Start 10/13/17 at 00:00 Hydromorphone HCl (Dilaudid) 1 mg Q3 PRN IV SEVERE PAIN LEVEL 7-10; Start at 09:00 TAL ACKERMAN M.D. Oct 13, 2017 09:52
[2017-10-13] MEDS ORDERED: ROPIVACAINE 0.5 % 30 ML VIAL ONE (09:56)
[2017-10-13] MEDS ORDERED: BUPIVACAINE 0.25% (MPF) 30 ML INJ ONE (10:20)
[2017-10-13] MEDS ORDERED: PHENYLephrine (100 MCG/ML) 5ML SYG ONE (10:34)
[2017-10-13] MEDS ORDERED: HYDROmorphONE 2 MG/ML SYG ONE (10:48)
[2017-10-13] MEDS ORDERED: METOPROLOL 5 MG INJ ONE (11:54)
[2017-10-13] MEDS ORDERED: LABETALOL HCL 20MG INJ IV PRN (12:00)
[2017-10-13] MEDS ORDERED: METOCLOPRAMIDE 10 MG INJ IV PRN (12:00)
[2017-10-13] MEDS ORDERED: MEPERIDINE 25 MG INJ IV PRN (12:00)
[2017-10-13] MEDS ORDERED: DIPHENHYDRAMINE 50 MG INJ IV PRN (12:00)
[2017-10-13] MEDS ORDERED: HYDROmorphONE (0.2 MG/ML) 10ML SYG IV PRN ×3 (12:00)
[2017-10-13] MEDS ORDERED: MAGNESIUM SULFATE 4 GM/100 ML 100 ML IVPB ONE (12:30)
[2017-10-13] MEDS ORDERED: GLYCOPYRROLATE 0.4 MG INJ ONE (12:39)
[2017-10-13] MEDS ORDERED: NEOSTIGMINE 3 MG/3 ML SYRINGE ONE (12:39)
[2017-10-13] MEDS: D5W-0.45 NACL + KCL 20 MEQ 1,000 ML IV SCH ×2 (13:51→23:51)
[2017-10-13] MEDS ORDERED: DOCUSATE SODIUM 100 MG CAP PO PRN (14:00)
[2017-10-13] MEDS ORDERED: HYDROmorphONE 0.5 MG/0.5 ML SYG IV PRN (14:00)
[2017-10-13] MEDS ORDERED: HYDROCODONE/APAP (5/325) TAB PO PRN (14:00)
[2017-10-13] MEDS ORDERED: BISACODYL 10 MG SUPP PR PRN (14:00)
--- NOTE | 2017-10-13 14:40 | OPR ---
Date/Time of Note Date/Time of Note DATE: 10/13/17 TIME: 14:39 Operative Report Free Text/Dictation [facility] INPATIENT [facility]PER[facility] PLACE OF SERVICE: [facility] DATE OF SURGERY: 10/13/2017 PREOPERATIVE DIAGNOSIS: 1. Acute cholecystitis 2. BMI 35 POSTOPERATIVE DIAGNOSIS: 1. Severe acute on chronic cholecystitis 2. BMI 35 OPERATION: 1. Laparoscopic cholecystectomy (modifier 22) 2. Laparoscopic closure of enterotomy of transverse colon SURGEON: Tal Tirado M.D. AGENT BROKER: Jones ANESTHESIA: General endotracheal tube anesthesia ANESTHESIOLOGIST: Roxanne Floyd M.D. BRIEF SUMMARY: A challenging laparoscopic cholecystectomy was performed with findings of severe acute on cholecystitis. Complication of enterotomy through transverse colon at the time of insertion of the initial trocar was noted immediately and repaired laparoscopically and layered closure. BRIEF HISTORY: The patient is a very pleasant 27-year-old gentleman with above- mentioned BMI of 35 who presented and was admitted through the emergency department at [facility] on 10/12/2017 with diagnosis of acute cholecystitis. Patient started having pain about 3-4 days ago and was seen by an urgent care clinic that diagnosed him with possible reflux disease or peptic ulcer disease and was given pain medications and antimicrobials. He did improve but then worsened and was admitted through the emergency department after his laboratory values demonstrated elevated white blood cell count and his CT scan showed evidence for acute cholecystitis. I met with the patient and family (mother) and counseled them regarding the possible options of treatment, and I strongly suggested a laparoscopic, possible open cholecystectomy. We reviewed the operation in detail as well as the risks, benefits, alternatives, and expected outcomes of this operation. After careful consideration of all the risks, benefits, and alternatives, the patient and family appeared to understand those risks and wished to proceed with surgery. For a detailed report of my consultation with patient and family, please refer to my separate consultation note. STATEMENT OF THE INFORMED CONSENT: The patient and family appeared to understand the risks of the operation to include, but not be limited to risk of postoperative pain and scar tissue, possible infection or bleeding requiring other interventions such as opening the wound, placement of drainage catheters, or other operative interventions; possible injury to surrounding to structures including bowel, bladder, bile duct, or blood vessels, or solid organs such as liver, kidney, or pancreas requiring other interventions or procedures; possible leakage of bile from surgical clip sites, suture lines, or worse, from common bile duct injury, causing significant increase in morbidity and mortality and requiring multiple interventions including but not limited to, placement of drainage catheters, imaging studies, as well as operative interventions; possible other source of sepsis such as urinary tract infections or pneumonias, or other sources of potentially life threatening problems such as deep venous thrombus formation causing pulmonary embolism, myocardial arrhythmias and infarctions, and even . After careful consideration of all their options, the patient and family appeared to understand and wished to proceed with surgery. DESCRIPTION OF PROCEDURE: After obtaining informed consent, the patient was brought into the operating room and was placed in a normal supine position, where successful general endotracheal tube anesthesia was performed. The patient 's abdominal skin was prepped and draped, from the nipple line down to the level of the groins, in the usual sterile fashion. Intravenous access was already in place, and appropriately chosen and dosed therapeutic intravenous antimicrobials were administered. We then called a surgical time-out where patient's identification, date of , nature of the operation, allergies, presence of intravenous antimicrobials, presence of needed equipment, and any other concerns were reviewed and agreed upon by all members of the operating room team. We then started the operation by placing a 5-mm skin incision in the right- upper quadrant, subcostal midclavicular line, and attempted to introduce a 5-mm [employer] trocar into the peritoneal space, visualizing all the layers of the abdominal wall as we entered. Note that immediately upon what I believe to have been entry into the peritoneal space, I noted that the trocar tip appeared to be inside of bowel, likely colon. We had insufflated slight amount of gas through the trocar and I had immediately stopped it once I made this realization. Without removal of the trocar, we then went ahead and placed another 5 mm skin incision in the left upper subcostal midclavicular line and introduced another 5 mm trocar using direct entry technique and visualizing all the layers of the abdominal wall as we entered. This time, there was no indication of any injury to underlying structures. We put in a slight amount of pneumoperitoneum enough for me to assess the area of initial entry. We could see the entry of the initial trocar into an area of colon that was densely adherent on top of what appeared to be significantly inflamed area of omentum that was covering a bulge under the right edge of liver which we assumed to be the gallbladder. There was no spillage of any enteric contents around the initial trocar site. There was evidence for purulence within the abdominal cavity in the right upper quadrant with some white filmy exudate on the surface of the liver. There also appear to be slight amount of purulent fluid along the right gutter and in the pelvic region. With this information, I went ahead and placed a another 5 mm skin incision in the umbilical area and introduced a 5 mm trocar after injection of the site with quarter percent Marcaine and then insertion of the trocar under direct visualization. I was then able to switch the camera to this umbilical port site and continue laparoscopically with the case. We then used 3-0 Vicryl suture on SH needle and did a [id number] closure of the enterotomy site on the transverse colon after using slight amount of judicious cautery along with blunt dissection to delineate the bowel wall that was underneath a thin film of omentum. The suturing went without any difficulty and we were then able to reinforce the area with 2 interrupted 3-0 silk sutures in a Lembert style. This was all done laparoscopically and the repair appeared to be intact and no leakage of bowel was found at the site throughout the rest of the case. At this point, we went a head and placed the other trocars under direct visualization, after injecting their sites with 0.25% Marcaine, placing a 5-mm trocar in the right anterior axillary line, and a 12-mm trocar in the midline subxiphoid region. With our instruments in place, we had excellent visualization and access to the right-upper quadrant. We then started a meticulous process of mostly blunt dissection with very judicious use of cautery in order to separate the densely adherent omentum off of the wall of the gallbladder. This indicated chronic swelling of this region. The gallbladder wall itself appeared to be alive and no obvious areas of pus or necrotic/gangrenous regions could be seen. The wall was however thickened and hyperemic. During the process of dissection of the omentum from the anterior wall of the gallbladder body, there was entry into the gallbladder wall (gallbladder was significantly distended) and there was spillage of what appeared to be thin bile with some purulence and a few small stones out of the gallbladder. These were immediately controlled using suction and then a stone project management manager was used to remove the gallstones that had spilled out. With the gallbladder decompressed in this fashion, we were able to complete the dissection of the omentum off of the gallbladder and was able to grasp the fundus of the gallbladder and pointed it up towards the right-upper quadrant. We were then able to continue our dissection towards the infundibulum, and after more blunt dissection, we were able to grasp the infundibulum and pull it out in order to expose the critical triangle of Calot. The area of triangle of Calot low was significantly inflamed. I tried very judicious use of blunt dissection to dissect around and identified the critical structures of the cystic duct and cystic artery. This proved to be difficult. I could see the outline of what appeared to be the cystic artery, but I was not able to get around it easily. For this reason and to maximize the degree of safety of the operation, I decided to take the gallbladder top-down which we accomplished using a combination of cautery as well as blunt dissection. During this process , we had to place not one but to Raytek inside and the dissection was difficult , partially explaining the more than usual blood loss of approximately 200 cc for the entire case. Nevertheless, there was no point of uncontrolled hemorrhage and the dissection went well towards the infundibulum of the gallbladder. With combination of approaches from the top and from the bottom, I was eventually able to circumferentially isolate the course of the cystic artery. There was a slight bit of tissue to the right of this area, but this tissue was all going into the gallbladder and I was very comfortable that the underlying janell hepatis structures were all protected and intact. Given the degree of inflammation in this region, I decided to transect across the area of the cystic artery and the tissue medial to it using one firing of the 60 mm Endo NUNO [place] stapler with a vascular (white) load. The stapler fired without any technical difficulties and the staple rows appear to be regulatory internship. The staple line appeared to be hemostatic. With above maneuver, we were able to then fired another vascular load of the same stapler to come across the area of the cystic duct while protecting the underlying janell hepatis structures. Again the stapler fired without any difficulty and the staple rows appear to be regulatory internship and the staple line appeared to be metastatic and no leakage of bile was noted. We were then able to deliver the gallbladder out inside of an EndoCatch bag through the 12-mm trocar site with having to enlarge the fascia but without contaminating the wound. The gallbladder was sent to Pathology for evaluation. Returning to the abdominal cavity, we ensured that there was adequate hemostasis and bile-stasis and that the area of repair of the transverse colotomy was intact without any evidence of further leakage, prior to removal of all of or equipment, including the pneumoperitoneum and the 2 Raytek that we had used during the case, and then reapproximating the 12-mm trocar site with [id number] 0 Vicryl sutures(4), followed by washing the wounds with copious amounts of normal saline, and then reapproximating the skin using interrupted 4-0 Monocryl sutures. Light dressing was then applied. At the end of the operation, both the sponge count and needle count were reportedly correct x2. The patient tolerated the procedure without any reported complications. Please note that this operation qualifies for modifier 22 given the degree of difficulty of the case and complexity of the decision-making. Approximately 60 extra minutes of adhesiolysis had to be performed due to the degree of difficulty of the case and added to the complexity, supporting the modifier 22. ESTIMATED BLOOD LOSS: 200 BLOOD OR BLOOD PRODUCT TRANSFUSIONS: None to my knowledge. SPECIMENS: 1. Gallbladder GRAFTS: None COMPLICATIONS: Transverse colotomy from the insertion of the initial trocar, immediately recognized and repaired laparoscopically DISPOSITION: Recovery area. Disclaimers: 1. Inadvertent spelling and grammatical errors are likely due to electronic health record (EHR)/dictation software used and do not reflect on the quality of delivered patient care. 2. The electronic timestamp recorded on this note does not necessarily reflect the actual date and time of the visit or the service. 3. Portions of this note may have been created through electronic templates and computer algorithms that might bring in information either from the system or from other physicians and providers. Please note that such information may or may not contain errors, the occurrence of which are outside of my control. In general (but not always) this happens either in the beginning or at the end of the note. The portion of the note that I have created are generally done in 1 continuous block of text, flanked at the beginning and at the end by " ", and entered into one field in the EHR. 4. There may be other unanticipated errors in the note that are outside of my control. I can only attest to the portions of the note that I have created. TAL TIRADO M.D. Oct 13, 2017 14:40
--- NOTE | 2017-10-13 14:46 | PN ---
Date/Time of Note Date/Time of Note DATE: 10/13/17 TIME: 14:44 Assessment/Plan VTE Prophylaxis VTE Prophylaxis Intervention: LMWH Lines/Catheters IV [facility] (from [facility]): Peripheral IV Urinary Cath still in place: No Assessment/Plan Chief Complaint/Hosp Course 1. Severe acute on chronic cholecystitis. Status post laparoscopic cholecystectomy on 10/13/2017. Continue pain control. Encourage incentive spirometry. Encourage early ambulation. 2. Sepsis with underlying gram-negative bacteremia. Most probably secondary to #1. No evidence of any septic shock. Continue broad-spectrum antimicrobials. Repeat blood cultures. 3. Fluids, electrolytes, and nutrition. Continue IV fluids. Advancement of diet as per surgery. 4. DVT prophylaxis. Subcutaneous Lovenox. 5. Plan. Continue antimicrobials. Continue pain control. Encourage incentive spirometry. Encourage frequent ambulation. Await clearance from surgery before discharge. Case discussed with Dr. Durham. Problems: Subjective 24 Hr Interval Summary Free Text/Dictation Status post laparoscopic cholecystectomy. Complaints of abdominal pain. Exam/Review of Systems Vital Signs Vitals Vital Signs Date Time Temp Pulse Resp B/P Pulse Ox O2 Delivery O2 Flow Rate FiO2 10/13/17 14:01 92 15 109/58 99 Nasal Cannula 2.0 10/13/17 13:18 99.1 Intake and Output 10/12/17 10/12/17 10/13/17 14:59 22:59 06:59 Intake Total 100 ml Balance 100 ml Exam General: Adequately build 27 year-old male lying in bed in no apparent distress. HEENT: Normocephalic, atraumatic. Eyes: Anicteric sclerae, conjunctivae clear. ENT: Nasal septum midline, oral mucosa moist. Neck supple, no JVD noticed. Respiratory: Bilaterally clear breath sounds. No use of accessory muscles of respiration. No adventitious breath sounds. Cardiovascular: S1, S2 heard. No murmurs or gallops. Abdomen: Soft. Band-Aid over the laparoscopic incision sites. Bowel hypoactive in all 4 quadrants. Genitourinary: Deferred. Extremities: No cyanosis, no clubbing, no edema. Peripheral pulses palpable. Neurologic: Cranial nerves II through XII grossly intact. The patient is awake, alert, and oriented. Skin: Normal skin turgor. No skin rashes. Results Result Diagram: 10/13/1744610/13/17446 Results 24 hrs Laboratory Tests Test 10/12/17 16:55 10/12/17 18:58 10/12/17 19:40 10/13/17 04:47 White Blood Count 12.3 H 12.4 H Red Blood Count 4.67 L 3.95 L Hemoglobin 14.8 12.6 L Hematocrit 44.5 37.7 L Mean Corpuscular Volume 95.3 95.4 Mean Corpuscular Hemoglobin 31.7 31.9 Mean Corpuscular Hemoglobin Concent 33.3 33.4 Red Cell Distribution Width 12.7 12.5 Platelet Count 283 205 # Mean Platelet Volume 9.6 10.0 Neutrophils % 90.9 H 86.0 H Lymphocytes % 5.7 L 6.0 L Monocytes % 2.9 7.4 Eosinophils % 0.0 0.0 Basophils % 0.2 0.2 Nucleated Red Blood Cells % 0.0 0.0 Neutrophils # 11.1 H 10.6 H Lymphocytes # 0.7 L 0.7 L Monocytes # 0.4 0.9 Eosinophils # 0.0 0.0 Basophils # 0.0 0.0 Nucleated Red Blood Cells # 0.0 0.0 Sodium Level 141 142 Potassium Level 4.2 4.3 Chloride Level 100 106 Carbon Dioxide Level 29 28 Anion Gap 16 12 Blood Urea Nitrogen 12 12 Creatinine 0.94 0.99 Glucose Level 135 105 Calcium Level 9.4 8.5 Total Bilirubin 0.9 1.1 Direct Bilirubin 0.00 0.00 Indirect Bilirubin 0.9 1.1 Aspartate Amino Transf (AST/SGOT) 22 18 Alanine Aminotransferase (ALT/SGPT) 38 35 Alkaline Phosphatase 80 51 Total Protein 7.5 6.6 Albumin 4.5 3.4 # Globulin 3.00 3.20 Albumin/Globulin Ratio 1.50 1.06 Lipase 54 Urine Color YELLOW Urine Clarity SLIGHTLY CLOUDY A Urine pH 5.0 Urine Specific [place] 1.021 Urine Ketones NEGATIVE Urine Nitrite NEGATIVE Urine Bilirubin NEGATIVE Urine Urobilinogen NEGATIVE Urine Leukocyte Esterase NEGATIVE Urine Microscopic RBC 15 H Urine Microscopic WBC 4 Urine Mucus MANY A Urine Hemoglobin 2+ H Urine Glucose NEGATIVE Urine Total Protein NEGATIVE Lactic Acid Level 1.3 Hemoglobin A1c 5.0 Magnesium Level 1.2 L Triglycerides Level 40 Cholesterol Level 93 L LDL Cholesterol, Calculated 40 HDL Cholesterol 45 Cholesterol/HDL Ratio 2.0 Thyroid Stimulating Hormone (TSH) 0.467 Medications Medications Current Medications Ondansetron HCl (Zofran Inj) 4 mg Q6H PRN IV NAUSEA AND/OR VOMITING; Start at 21:00 Acetaminophen 650 mg 650 mg Q6H PRN PO PAIN LEVEL 1-3 OR FEVER Last administered on 10/13/17 08:55; Admin Dose 650 MG; Start 10/12/17 at 21:00 Piperacillin Sod/ Tazobactam Sod 50 ml @ 100 mls/hr Q6 IVPB Last administered on 10/13/17 05:51; Admin Dose 100 MLS/HR; Start 10/13/17 at 00:00 Magnesium Sulfate 100 ml @ 25 mls/hr ONCE ONCE IVPB ; Start 10/13/17 at 12:30 ; Stop 10/13/17 at 16:29 Potassium Chloride/Dextrose/ Sod Cl (D5-1/2ns + KCl 20 Meq) 1,000 ml @ 100 mls/ hr Q10H IV ; Start 10/13/17 at 13:51 Acetaminophen/ Hydrocodone Bitart ([place] (5/325)) 1 tab Q4H PRN PO PAIN LEVEL 4 -7; Start 10/13/17 at 14:00 Acetaminophen/ Hydrocodone Bitart ([place] (5/325)) 2 tab Q4H PRN PO PAIN LEVEL 7 -10; Start 10/13/17 at 14:00 Hydromorphone HCl (Dilaudid) 0.5 mg Q2 PRN IV PAIN; Start 10/13/17 at 14:00 Hydromorphone HCl (Dilaudid) 1 mg Q2 PRN IV PAIN; Start 10/13/17 at 14:00 Docusate Sodium (Colace) 100 mg BID PRN PO CONSTIPATION; Start 10/13/17 at 14: 00 Bisacodyl (Dulcolax Supp) 10 mg BID PRN [place] CONSTIPATION; Start 10/13/17 at 14: 00 Famotidine (Pepcid Iv) 20 mg DAILY IV ; Start 10/14/17 at 09:00 Enoxaparin Sodium (Lovenox) 40 mg DAILY SC ; Start 10/14/17 at 09:00 LETICIA COONEY NP Oct 13, 2017 14:46
[2017-10-14] VITALS: BP 111/66; PULSE 109; RESP 18
[2017-10-14] MEDS: PIPER-TAZO 3.375 GM IV (PMX) 50 ML IVPB SCH ×5 (00:57→23:44)
[2017-10-14] MEDS: HYDROCODONE/APAP (5/325) TAB PO PRN ×6 (02:37→23:58)
[2017-10-14 04:00] VITALS: BP 120/69; PULSE 109; RESP 18
[2017-10-14 05:18] LABS: BASOPHILS % 0.3 % (0.0-2.0); EOSINOPHILS % 0.4 % (0.0-7.0); HEMATOCRIT 35.6 % (42.0-52.0); HEMOGLOBIN 11.9 g/dl (14.0-18.0); LYMPHOCYTES % 9.8 % (15.0-51.0); MEAN CORPUSCULAR HEMOGLOBIN 31.6 pg (29.0-33.0); MEAN CORPUSCULAR HGB CONC 33.4 g/dl (32.0-37.0); MEAN CORPUSCULAR VOLUME 94.4 fl (82.0-101.0); MEAN PLATELET VOLUME 9.9 fl (7.4-10.4); MONOCYTE # 0.9 10^3/ul (0.3-0.9); MONOCYTES % 9.1 % (0.0-11.0); NEUTROPHIL # 8.3 10^3/ul (1.6-7.5); NEUTROPHILS % 79.9 % (39.0-77.0); PLATELET COUNT 180 10^3/UL (140-415); RED BLOOD COUNT 3.77 10^6/ul (4.70-6.10); RED CELL DISTRIBUTION WIDTH 12.4 % (11.5-14.5); WHITE BLOOD COUNT 10.3 10^3/ul (4.8-10.8)
[2017-10-14 05:48] LABS: ALBUMIN 3.2 g/dl (3.3-4.9); ALBUMIN/GLOBULIN RATIO 0.94; BILIRUBIN,INDIRECT 0.8 mg/dl (0-1.1); BILIRUBIN,TOTAL 0.8 mg/dl (0.2-1.3); CALCIUM 8.8 mg/dl (8.4-10.2); CREATININE 0.94 mg/dl (0.61-1.24); TOTAL PROTEIN 6.6 g/dl (6.1-8.1)
[2017-10-14 05:49] LABS: PHOSPHORUS 2.3 mg/dl (2.5-4.9)
[2017-10-14 05:52] LABS: INR 1.38; PARTIAL THROMBOPLASTIN TIME 39.6 Sec (25.0-35.0); PT RATIO 1.3
[2017-10-14 07:48] VITALS: BP 126/68; RESP 18
[2017-10-14] MEDS: FAMOTIDINE 20 MG INJ IV SCH (08:15)
[2017-10-14] MEDS: ENOXAPARIN 40 MG/0.4 ML SYG SC SCH (08:22)
[2017-10-14] MEDS: D5W-0.45 NACL + KCL 20 MEQ 1,000 ML IV SCH ×2 (09:51→19:51)
--- NOTE | 2017-10-14 11:20 | PN ---
Date/Time of Note Date/Time of Note DATE: 10/14/17 TIME: 11:18 Assessment/Plan VTE Prophylaxis VTE Prophylaxis Intervention: LMWH Lines/Catheters [facility]from [facility] Saline Lock Urinary Cath still in place: No Assessment/Plan Chief Complaint/Hosp Course 1. Severe acute on chronic cholecystitis. Status post laparoscopic cholecystectomy on 10/13/2017. Continue pain control. Encourage incentive spirometry. Encourage early ambulation. 2. Sepsis with underlying gram-negative bacteremia. Most probably secondary to #1. No evidence of any septic shock. Continue broad-spectrum antimicrobials. Repeat blood cultures. 3. Fluids, electrolytes, and nutrition. Continue IV fluids. Advancement of diet as per surgery. 4. DVT prophylaxis. Subcutaneous Lovenox. 5. Plan. Continue antimicrobials. Continue pain control. Encourage incentive spirometry. Encourage frequent ambulation. Await final cultures. Case discussed with Dr. Durham. Problems: Subjective 24 Hr Interval Summary Free Text/Dictation Continues to have incisional pain. Tolerating regular consistency diet. Exam/Review of Systems Vital Signs Vitals Vital Signs Date Time Temp Pulse Resp B/P Pulse Ox O2 Delivery O2 Flow Rate FiO2 10/14/17 07:48 98.0 100 18 126/68 94 10/14/17 04:00 Room Air 10/13/17 17:45 2.0 Intake and Output 10/13/17 10/13/17 10/14/17 15:00 23:00 07:00 Intake Total 2240 ml 450 ml 1050 ml Output Total 200 ml 850 ml 1050 ml Balance 2040 ml -400 ml 0 ml Exam General: Adequately build 27 year-old male lying in bed in no apparent distress. HEENT: Normocephalic, atraumatic. Eyes: Anicteric sclerae, conjunctivae clear. ENT: Nasal septum midline, oral mucosa moist. Neck supple, no JVD noticed. Respiratory: Bilaterally clear breath sounds. No use of accessory muscles of respiration. No adventitious breath sounds. Cardiovascular: S1, S2 heard. No murmurs or gallops. Abdomen: Soft. Band-Aid over the laparoscopic incision sites. Bowel hypoactive in all 4 quadrants. Genitourinary: Deferred. Extremities: No cyanosis, no clubbing, no edema. Peripheral pulses palpable. Neurologic: Cranial nerves II through XII grossly intact. The patient is awake, alert, and oriented. Skin: Normal skin turgor. No skin rashes. Results Result Diagram: 10/14/178 10/14/17427 Results 24 hrs Laboratory Tests Test 10/14/17 04:28 White Blood Count 10.3 Red Blood Count 3.77 L Hemoglobin 11.9 L Hematocrit 35.6 L Mean Corpuscular Volume 94.4 Mean Corpuscular Hemoglobin 31.6 Mean Corpuscular Hemoglobin Concent 33.4 Red Cell Distribution Width 12.4 Platelet Count 180 Mean Platelet Volume 9.9 Neutrophils % 79.9 H Lymphocytes % 9.8 L Monocytes % 9.1 Eosinophils % 0.4 Basophils % 0.3 Nucleated Red Blood Cells % 0.0 Neutrophils # 8.3 H Lymphocytes # 1.0 Monocytes # 0.9 Eosinophils # 0.0 Basophils # 0.0 Nucleated Red Blood Cells # 0.0 Prothrombin Time 17.0 H Prothrombin Time Ratio 1.3 INR International Normalized Ratio 1.38 Activated Partial Thromboplast Time 39.6 H Sodium Level 137 Potassium Level 4.0 Chloride Level 102 Carbon Dioxide Level 29 Anion Gap 10 Blood Urea Nitrogen 9 Creatinine 0.94 Glucose Level 109 Lactic Acid Level 0.9 Calcium Level 8.8 Phosphorus Level 2.3 L Magnesium Level 2.0 Total Bilirubin 0.8 Direct Bilirubin 0.00 Indirect Bilirubin 0.8 Aspartate Amino Transf (AST/SGOT) 40 # Alanine Aminotransferase (ALT/SGPT) 39 Alkaline Phosphatase 58 B-Type Natriuretic Peptide 135 H Total Protein 6.6 Albumin 3.2 L Globulin 3.40 H Albumin/Globulin Ratio 0.94 Medications Medications Current Medications Ondansetron HCl (Zofran Inj) 4 mg Q6H PRN IV NAUSEA AND/OR VOMITING; Start at 21:00 Acetaminophen 650 mg 650 mg Q6H PRN PO PAIN LEVEL 1-3 OR FEVER Last administered on 10/13/17 08:55; Admin Dose 650 MG; Start 10/12/17 at 21:00 Piperacillin Sod/ Tazobactam Sod 50 ml @ 100 mls/hr Q6 IVPB Last administered on 10/14/17 05:16; Admin Dose 100 MLS/HR; Start 10/13/17 at 00:00 Potassium Chloride/Dextrose/ Sod Cl (D5-1/2ns + KCl 20 Meq) 1,000 ml @ 100 mls/ hr Q10H IV ; Start 10/13/17 at 13:51 Acetaminophen/ Hydrocodone Bitart ([place] (5/325)) 1 tab Q4H PRN PO PAIN LEVEL 4 -7; Start 10/13/17 at 14:00 Acetaminophen/ Hydrocodone Bitart ([place] (5/325)) 2 tab Q4H PRN PO PAIN LEVEL 7 -10 Last administered on 10/14/17 06:48; Admin Dose 2 TAB; Start 10/13/17 at 14:00 Hydromorphone HCl (Dilaudid) 0.5 mg Q2 PRN IV PAIN; Start 10/13/17 at 14:00 Hydromorphone HCl (Dilaudid) 1 mg Q2 PRN IV PAIN Last administered on 21:32; Admin Dose 1 MG; Start 10/13/17 at 14:00 Docusate Sodium (Colace) 100 mg BID PRN PO CONSTIPATION; Start 10/13/17 at 14: 00 Bisacodyl (Dulcolax Supp) 10 mg BID PRN [place] CONSTIPATION; Start 10/13/17 at 14: 00 Famotidine (Pepcid Iv) 20 mg DAILY IV Last administered on 10/14/17 08:15; Admin Dose 20 MG; Start 10/14/17 at 09:00 Enoxaparin Sodium (Lovenox) 40 mg DAILY SC Last administered on 10/14/17 08: 22; Admin Dose 40 MG; Start 10/14/17 at 09:00 LETICIA COONEY NP Oct 14, 2017 11:20 LETICIA COONEY NP Oct 14, 2017 11:20
[2017-10-14 12:00] VITALS: BP 126/76; PULSE 101; RESP 16
[2017-10-14 14:45] VITALS: BP 124/72; RESP 18
--- NOTE | 2017-10-14 18:30 | PN ---
Date/Time of Note Date/Time of Note DATE: 10/14/17 TIME: 18:30 Assessment/Plan Lines/Catheters IV Catheter Type (from Nrs): Saline Lock Humphrey in Place (from Nrs): No Assessment/Plan Assessment/Plan [facility] Progress Note Date of Service: 10/14/2017 Location of Service: [facility] fourth floor Today's Assessment & Plan: Overall stable and doing well. Abdomen remains benign. No indications of major postoperative complications or wound problems. No indication for acute surgical intervention. Awaiting further return of bowel function. With above assessment, I've recommended the following for today: 1. Keep in-house 2. Increase activity 3. Increase incentive spirometry 4. Labs in a.m. 5. Possible discharge planning in a.m. Thank you very much for having me involved in the care of this very pleasant patient and wonderful family. If you have any questions, please feel free to contact me at [phone]. Nature of presenting problem: High severity Please note that, given the multiple number of diagnoses or management options, the moderate amount and/or complexity of data needed to be reviewed, and high risk of complications and/or morbidity or mortality, this qualifies as moderate complexity type of decision-making. Disclaimers: 1. Inadvertent spelling and grammatical errors are likely due to electronic health record (EHR)/dictation software used and do not reflect on the quality of delivered patient care. 2. The electronic timestamp recorded on this note does not necessarily reflect the actual date and time of the visit or the service. 3. Portions of this note may have been created through electronic templates and computer algorithms that might bring in information either from the system or from other physicians and providers. Please note that such information may or may not contain errors, the occurrence of which are outside of my control. In general (but not always) this happens either in the beginning or at the end of the note. The portion of the note that I have created are generally done in 1 continuous block of text, flanked at the beginning and at the end by " ", and entered into one field in the EHR. 4. There may be other unanticipated errors in the note that are outside of my control. I can only attest to the portions of the note that I have created. Updated clinical summary: Very pleasant 27-year-old gentleman with comorbidity of BMI 35, admitted through the emergency department at [facility] on 10/12/2017 with acute cholecystitis. S/p a rather challenging laparoscopic cholecystectomy with complication of enterotomy (? transverse colon) at time of insertion of the initial trocar was noted immediately and repaired laparoscopically with layered closure at [facility] 10/14/17. Final path: MICROSCOPIC DIAGNOSIS: Gallbladder, cholecystectomy: -- Acute suppurative cholecystitis. -- Cholelithiasis (gross only). -- No evidence of malignancy. Comorbidities: 1. Severe acute on chronic cholecystitis. S/p a rather challenging laparoscopic cholecystectomy with complication of enterotomy (? transverse colon ) at time of insertion of the initial trocar was noted immediately and repaired laparoscopically with layered closure at [facility] 10/14/17. 2. BMI 35 Subjective: No major events or complaints; no abd pain and under control with medications; no n/v/d; no sob or cp; bowel activity; + activity Objective: Vitals: See below Exam: GENERAL: On exam, the patient was laying in bed and appeared to be comfortable and in no acute distress. ABDOMEN: Soft, nontender and nondistended. Incision dressings are clean, dry and intact without any evidence of obvious underlying erythema, edema, discharge , or hernia. There are no peritoneal signs or guarding. SKIN: Skin appears to be pink and feels warm to touch. NEUROLOGIC: Patient is awake, alert, and follows commands appropriately. Exam/Review of Systems Vital Signs Vitals Vital Signs Date Time Temp Pulse Resp B/P Pulse Ox O2 Delivery O2 Flow Rate FiO2 10/14/17 14:45 98.7 18 124/72 96 10/14/17 12:00 101 Room Air 10/13/17 17:45 2.0 Intake and Output 10/13/17 10/13/17 10/14/17 15:00 23:00 07:00 Intake Total 2240 ml 450 ml 1050 ml Output Total 200 ml 850 ml 1050 ml Balance 2040 ml -400 ml 0 ml Results Result Diagram: 10/14/17 0428 10/14/17 0428 TAL ACKERMAN M.D. Oct 14, 2017 18:30
[2017-10-14 20:32] VITALS: BP 128/79; RESP 20
[2017-10-15 01:17] VITALS: BP 120/67; RESP 18
[2017-10-15 05:15] LABS: WHITE BLOOD COUNT 9.9 10^3/ul (4.8-10.8)
[2017-10-15 05:16] LABS: BASOPHILS % 0.2 % (0.0-2.0); EOSINOPHILS # 0.2 10^3/ul (0.0-0.5); EOSINOPHILS % 1.8 % (0.0-7.0); HEMATOCRIT 32.4 % (42.0-52.0); LYMPHOCYTES % 20.7 % (15.0-51.0); MEAN CORPUSCULAR HEMOGLOBIN 31.8 pg (29.0-33.0); MEAN CORPUSCULAR VOLUME 93.6 fl (82.0-101.0); MEAN PLATELET VOLUME 9.9 fl (7.4-10.4); MONOCYTES % 10.1 % (0.0-11.0); NEUTROPHIL # 6.6 10^3/ul (1.6-7.5); NEUTROPHILS % 66.7 % (39.0-77.0); PLATELET COUNT 189 10^3/UL (140-415); RED BLOOD COUNT 3.46 10^6/ul (4.70-6.10); RED CELL DISTRIBUTION WIDTH 12.1 % (11.5-14.5)
[2017-10-15] MEDS: PIPER-TAZO 3.375 GM IV (PMX) 50 ML IVPB SCH ×3 (05:28→18:26)
[2017-10-15] MEDS: D5W-0.45 NACL + KCL 20 MEQ 1,000 ML IV SCH ×2 (05:28→18:19)
[2017-10-15 05:36] LABS: MAGNESIUM 1.8 mg/dl (1.7-2.5); PHOSPHORUS 3.2 mg/dl (2.5-4.9)
[2017-10-15 05:40] LABS: ALBUMIN 3.4 g/dl (3.3-4.9); ALBUMIN/GLOBULIN RATIO 1.06; BILIRUBIN,INDIRECT 0.5 mg/dl (0-1.1); BILIRUBIN,TOTAL 0.5 mg/dl (0.2-1.3); CALCIUM 8.7 mg/dl (8.4-10.2); CREATININE 0.85 mg/dl (0.61-1.24); POTASSIUM 3.6 mmol/L (3.5-5.1); TOTAL PROTEIN 6.6 g/dl (6.1-8.1)
[2017-10-15 08:01] VITALS: BP 112/63; RESP 18
[2017-10-15] MEDS: FAMOTIDINE 20 MG INJ IV SCH (08:12)
[2017-10-15] MEDS: ENOXAPARIN 40 MG/0.4 ML SYG SC SCH (08:17)
[2017-10-15] MEDS: HYDROCODONE/APAP (5/325) TAB PO PRN ×2 (12:05→19:35)
[2017-10-15 14:28] VITALS: BP 118/70; RESP 18
[2017-10-15] MEDS ORDERED: MAGNESIUM HYDROXIDE 30ML CUP PO PRN (14:30)
--- NOTE | 2017-10-15 16:48 | PN ---
Date/Time of Note Date/Time of Note DATE: 10/15/17 TIME: 16:46 Assessment/Plan VTE Prophylaxis VTE Prophylaxis Intervention: LMWH Lines/Catheters IV Catheter Type (from [facility]): Saline Lock Urinary Cath still in place: No Assessment/Plan Chief Complaint/Hosp Course 1. Severe acute on chronic cholecystitis. Status post laparoscopic cholecystectomy on 10/13/2017. Continue pain control. Encourage incentive spirometry. Encourage early ambulation. 2. Sepsis with underlying Bacteroides fragilis. Most probably secondary to # 1. No evidence of any septic shock. Repeat blood cultures negative. ID consult for antibiotic management and to finalize antibiotics. 3. Fluids, electrolytes, and nutrition. Regular diet. 4. DVT prophylaxis. Subcutaneous Lovenox. 5. Plan. Continue pain control. Encourage incentive spirometry. Encourage frequent ambulation. Infectious diseases consult for antibiotic management and finalization of antibiotics. Plan is to discharge the patient home once cleared by general surgery and infectious diseases. Case discussed with Dr. Durham. Problems: Subjective 24 Hr Interval Summary Free Text/Dictation Tolerating regular diet. Started passing gas. Has not had any bowel movements yet. Exam/Review of Systems Vital Signs Vitals Vital Signs Date Time Temp Pulse Resp B/P Pulse Ox O2 Delivery O2 Flow Rate FiO2 10/15/17 14:28 98.0 90 18 118/70 94 10/14/17 12:00 Room Air 10/13/17 17:45 2.0 Intake and Output 10/14/17 10/14/17 10/15/17 15:00 23:00 07:00 Intake Total 50 ml 970 ml 400 ml Output Total 800 ml 500 ml Balance 50 ml 170 ml -100 ml Exam General: Adequately build 27 year-old male lying in bed in no apparent distress. HEENT: Normocephalic, atraumatic. Eyes: Anicteric sclerae, conjunctivae clear. ENT: Nasal septum midline, oral mucosa moist. Neck supple, no JVD noticed. Respiratory: Bilaterally clear breath sounds. No use of accessory muscles of respiration. No adventitious breath sounds. Cardiovascular: S1, S2 heard. No murmurs or gallops. Abdomen: Soft. Band-Aid over the laparoscopic incision sites. Bowel hypoactive in all 4 quadrants. Genitourinary: Deferred. Extremities: No cyanosis, no clubbing, no edema. Peripheral pulses palpable. Neurologic: Cranial nerves II through XII grossly intact. The patient is awake, alert, and oriented. Skin: Normal skin turgor. No skin rashes. Results Result Diagram: 10/15/1744310/15/17443 Results 24 hrs Laboratory Tests Test 10/15/17 04:44 White Blood Count 9.9 Red Blood Count 3.46 L Hemoglobin 11.0 L Hematocrit 32.4 L Mean Corpuscular Volume 93.6 Mean Corpuscular Hemoglobin 31.8 Mean Corpuscular Hemoglobin Concent 34.0 Red Cell Distribution Width 12.1 Platelet Count 189 Mean Platelet Volume 9.9 Neutrophils % 66.7 Lymphocytes % 20.7 Monocytes % 10.1 Eosinophils % 1.8 Basophils % 0.2 Nucleated Red Blood Cells % 0.0 Neutrophils # 6.6 Lymphocytes # 2.0 Monocytes # 1.0 H Eosinophils # 0.2 Basophils # 0.0 Nucleated Red Blood Cells # 0.0 Sodium Level 140 Potassium Level 3.6 Chloride Level 101 Carbon Dioxide Level 28 Anion Gap 15 Blood Urea Nitrogen 8 Creatinine 0.85 Glucose Level 88 Calcium Level 8.7 Phosphorus Level 3.2 Magnesium Level 1.8 Total Bilirubin 0.5 Direct Bilirubin 0.00 Indirect Bilirubin 0.5 Aspartate Amino Transf (AST/SGOT) 27 Alanine Aminotransferase (ALT/SGPT) 39 Alkaline Phosphatase 73 Total Protein 6.6 Albumin 3.4 Globulin 3.20 Albumin/Globulin Ratio 1.06 Medications Medications Current Medications Ondansetron HCl (Zofran Inj) 4 mg Q6H PRN IV NAUSEA AND/OR VOMITING; Start at 21:00 Acetaminophen 650 mg 650 mg Q6H PRN PO PAIN LEVEL 1-3 OR FEVER Last administered on 10/13/17 08:55; Admin Dose 650 MG; Start 10/12/17 at 21:00 Piperacillin Sod/ Tazobactam Sod 50 ml @ 100 mls/hr Q6 IVPB Last administered on 10/15/17 13:17; Admin Dose 100 MLS/HR; Start 10/13/17 at 00:00 Potassium Chloride/Dextrose/ Sod Cl (D5-1/2ns + KCl 20 Meq) 1,000 ml @ 100 mls/ hr Q10H IV Last administered on 10/15/17 05:28; Admin Dose 100 MLS/HR; Start 10/13/17 at 13:51 Acetaminophen/ Hydrocodone Bitart ([place] (5/325)) 1 tab Q4H PRN PO PAIN LEVEL 4 -7; Start 10/13/17 at 14:00 Acetaminophen/ Hydrocodone Bitart ([place] (5/325)) 2 tab Q4H PRN PO PAIN LEVEL 7 -10 Last administered on 10/15/17 12:05; Admin Dose 2 TAB; Start 10/13/17 at 14:00 Hydromorphone HCl (Dilaudid) 0.5 mg Q2 PRN IV PAIN; Start 10/13/17 at 14:00 Hydromorphone HCl (Dilaudid) 1 mg Q2 PRN IV PAIN Last administered on 21:32; Admin Dose 1 MG; Start 10/13/17 at 14:00 Docusate Sodium (Colace) 100 mg BID PRN PO CONSTIPATION Last administered on 12:05; Admin Dose 100 MG; Start 10/13/17 at 14:00 Bisacodyl (Dulcolax Supp) 10 mg BID PRN [place] CONSTIPATION; Start 10/13/17 at 14: 00 Famotidine (Pepcid Iv) 20 mg DAILY IV Last administered on 10/15/17 08:12; Admin Dose 20 MG; Start 10/14/17 at 09:00 Enoxaparin Sodium (Lovenox) 40 mg DAILY SC Last administered on 10/15/17 08: 17; Admin Dose 40 MG; Start 10/14/17 at 09:00 Magnesium Hydroxide (Milk Of Mag) 30 ml DAILY PRN PO CONSTIPATION Last administered on 10/15/17 14:29; Admin Dose 30 ML; Start 10/15/17 at 14:30 Polyethylene Glycol (Miralax) 17 gm BID PO ; Start 10/15/17 at 21:00 Metronidazole (Flagyl) 500 mg Q6 PO ; Start 10/15/17 at 18:00 LETICIA COONEY NP Oct 15, 2017 16:48
--- NOTE | 2017-10-15 17:35 | CONS ---
DATE OF ADMISSION: 10/12/2017 DATE OF CONSULTATION: 10/15/2017 TYPE OF CONSULTATION: Infectious disease. REASON FOR CONSULTATION: Antibiotic management. HISTORY OF PRESENT ILLNESS: Irene Dotson is a 27-year-old male who was brought in b y rescue with acute cholecystitis and is being seen for antibiotic management. The patient is a 27- year-old male with a history of H. pylori, who presents to the emergency room with right-sided abdom inal pain, fever, nausea, vomiting and diarrhea beginning 2 days prior to admission. The pain was s evere on the right side, right upper quadrant, radiating to the right lower quadrant and the epigast ade region. He has fever and reports episodes of multiple yellow-colored vomiting with loose stools . On admission, his white count was 12.3, H and H of 14.8 and 44.5, platelet count 283,000. On the his white count was 9.9. BUN and creatinine are 8/0.85. Urine slightly cloudy, leukocyte est erase was negative. Chest x-ray showed no acute cardiopulmonary disease and CT scan of the abdomen and pelvis showed a distended gallbladder demonstrating wall thickening and pericholecystic inflamma tory changes, highly suspicious for acute cholecystitis. Right upper quadrant ultrasound was recomm ended for confirmation. According to radiology, inflammatory changes in the right mid abdomen mesen gulshan with a small volume of free fluid layering within the pelvis, likely reactive in nature. Thick ening of the colon at the hepatic flexure adjacent to the gallbladder also likely reactive in nature . Nonspecific mild dilatation of the appendix measuring 8 mm in diameter without focal periappendic eal inflammatory changes. Correlation with physical examination was recommended. Periportal and po rtacaval adenopathy likely reactive in nature. Blood cultures have grown out from the Bacteroi aline fragilis. HOSPITAL COURSE: The patient was seen by Dr. Clem Tirado. He diagnosed acute cholecystitis posto perative with severe acute on chronic cholecystitis, laparoscopic cholecystectomy with laparoscopic closure of enterotomy of transverse colon, so he had a transverse colotomy from the insertion of the initial trocar, recognized and repaired laparoscopically. Currently the patient is stable. Abdome n remains benign. No indications of major postoperative complications. PAST MEDICAL HISTORY: Operations as outlined. FAMILY HISTORY: Noncontributory. SOCIAL HISTORY: He does not smoke, drink or abuse drugs. ALLERGIES: NONE TO PENICILLIN, SULFA OR FOODS. MEDICATIONS: Per chart. REVIEW OF SYSTEMS: Noncontributory. PHYSICAL EXAMINATION: GENERAL: The patient is a well-developed, well-nourished male who is lying in bed in no acute distr ess, status post-surgery. SKIN: Without generalized rash. HEENT: Within normal limits. NECK: Supple. LYMPH NODES: None palpable. CHEST: Decreased breath sounds at the bases. HEART: Without murmur or gallop. ABDOMEN: Soft, nontender, without organosplenomegaly or masses. Incision dressings are clean, dry and intact without any evidence of obvious underlying erythema, edema, discharge, or hernia. There are no peritoneal signs or guarding. EXTREMITIES: Without cyanosis, clubbing, or edema. RECTAL: Deferred. GENITAL: Deferred. NEUROLOGIC: No focal neurological abnormalities. IMPRESSION AND PLAN: The patient currently is status post cholecystectomy. Zosyn has very good cov erage for Bacteroides fragilis but I am going to add oral Flagyl to his regimen and on discharge the patient can be discharged on Cipro and Flagyl. His surgery was on the . He should have at [facility] 7 to 10 days of antibiotic therapy that reaches the bloodstream. Both Cipro and Flagyl would fit that description. I will dictate my findings to the hospitalist and to Dr. Clem Tirado. Dictated By: KALPESH SIMEON MD, JD/KRYSTAL Conf#: [id number] DID#: [id number] CC: NADER POOL MD;*EndCC*
[2017-10-15] MEDS: metroNIDAZOLE 500 MG TAB PO SCH (18:26)
[2017-10-15 19:55] VITALS: BP 126/79; RESP 18
--- NOTE | 2017-10-15 20:20 | PN ---
Date/Time of Note Date/Time of Note DATE: 10/15/17 TIME: 20:18 Assessment/Plan Lines/Catheters IV Catheter Type (from Nrs): Peripheral IV Humphrey in Place (from [facility]): No Assessment/Plan Assessment/Plan [facility] Progress Note Date of Service: 10/14/2017 Location of Service: [facility] fourth floor Today's Assessment & Plan: Overall stable and doing well. Abdomen remains benign. No indications of major postoperative complications or wound problems. No indication for acute surgical intervention. Primary team would like to keep patient one more day in house due to documented B fragilis bacteremia pre-op. I explained all of the above to the patient and his father and answered numerous questions. Patient and family appear to understand and agreed with plans. I also gave the patient a copy of the video of his operation to keep for their records. With above assessment, I've recommended the following for today: 1. Cont current cares. 2. Possible discharge planning in a.m. 3. Please include the following in the patient's discharge instructions: "Please call [phone] if any of fever, nausea, vomiting, discharge from wound, wound redness, increase or sudden pain, blood in stool or vomit, or any other unusual signs or symptoms. Also, please call the same number in a few days to schedule an appointment for your follow up visit. Patient may remove dressings tomorrow. Showers OK starting tomorrow. No swimming , hot tub or bath for 2 weeks. No lifting more than 25 lbs for 8 weeks." Thank you very much for having me involved in the care of this very pleasant patient and wonderful family. If you have any questions, please feel free to contact me at [phone]. Nature of presenting problem: High severity Please note that, given the multiple number of diagnoses or management options, the moderate amount and/or complexity of data needed to be reviewed, and high risk of complications and/or morbidity or mortality, this qualifies as moderate complexity type of decision-making. Disclaimers: 1. Inadvertent spelling and grammatical errors are likely due to electronic health record (EHR)/dictation software used and do not reflect on the quality of delivered patient care. 2. The electronic timestamp recorded on this note does not necessarily reflect the actual date and time of the visit or the service. 3. Portions of this note may have been created through electronic templates and computer algorithms that might bring in information either from the system or from other physicians and providers. Please note that such information may or may not contain errors, the occurrence of which are outside of my control. In general (but not always) this happens either in the beginning or at the end of the note. The portion of the note that I have created are generally done in 1 continuous block of text, flanked at the beginning and at the end by " ", and entered into one field in the EHR. 4. There may be other unanticipated errors in the note that are outside of my control. I can only attest to the portions of the note that I have created. Updated clinical summary: Very pleasant 27-year-old gentleman with comorbidity of BMI 35, admitted through the emergency department at [facility] on 10/12/2017 with acute cholecystitis with B fragilis bacteremia. S/p a rather challenging laparoscopic cholecystectomy with complication of enterotomy (? transverse colon ) at time of insertion of the initial trocar was noted immediately and repaired laparoscopically with layered closure at [facility] 10/14/17. Final path: MICROSCOPIC DIAGNOSIS: Gallbladder, cholecystectomy: -- Acute suppurative cholecystitis. -- Cholelithiasis (gross only). -- No evidence of malignancy. Comorbidities: 1. Severe acute on chronic cholecystitis with B fragilis bacteremia. S/p a rather challenging laparoscopic cholecystectomy with complication of enterotomy (? transverse colon) at time of insertion of the initial trocar was noted immediately and repaired laparoscopically with layered closure at [facility] 10/14/17. 2. BMI 35 Subjective: No major events or complaints; no abd pain and under control with medications; no n/v/d; no sob or cp; + bowel activity; + activity Objective: Vitals: See below Exam: GENERAL: On exam, the patient was laying in bed and appeared to be comfortable and in no acute distress. ABDOMEN: Soft, nontender and nondistended. Incision dressings d/c'd and incisions are clean, dry and intact without any evidence of obvious erythema, edema, discharge, or hernia. There are no peritoneal signs or guarding. SKIN: Skin appears to be pink and feels warm to touch. NEUROLOGIC: Patient is awake, alert, and follows commands appropriately. Exam/Review of Systems Vital Signs Vitals Vital Signs Date Time Temp Pulse Resp B/P Pulse Ox O2 Delivery O2 Flow Rate FiO2 10/15/17 19:55 98.5 96 18 126/79 96 10/14/17 12:00 Room Air 10/13/17 17:45 2.0 Intake and Output 10/14/17 10/14/17 10/15/17 15:00 23:00 07:00 Intake Total 50 ml 970 ml 400 ml Output Total 800 ml 500 ml Balance 50 ml 170 ml -100 ml Results Result Diagram: 10/15/17 0444 10/15/17 0444 TAL ACKERMAN M.D. Oct 15, 2017 20:20
[2017-10-15] MEDS: POLYETHYLENE GLYCOL 17 GM PACKET PO SCH (20:22)
[2017-10-16] MEDS: metroNIDAZOLE 500 MG TAB PO SCH ×3 (00:15→12:35)
[2017-10-16] MEDS: PIPER-TAZO 3.375 GM IV (PMX) 50 ML IVPB SCH ×3 (00:16→12:35)
[2017-10-16 01:08] VITALS: BP 122/78; RESP 18
[2017-10-16] MEDS: D5W-0.45 NACL + KCL 20 MEQ 1,000 ML IV SCH ×2 (01:37→11:51)
[2017-10-16] MEDS: HYDROCODONE/APAP (5/325) TAB PO PRN (05:11)
[2017-10-16 05:40] LABS: BASOPHILS % 0.4 % (0.0-2.0); EOSINOPHILS # 0.2 10^3/ul (0.0-0.5); EOSINOPHILS % 2.4 % (0.0-7.0); HEMATOCRIT 31.4 % (42.0-52.0); LYMPHOCYTES # 1.5 10^3/ul (0.8-2.9); LYMPHOCYTES % 21.8 % (15.0-51.0); MEAN CORPUSCULAR HEMOGLOBIN 32.2 pg (29.0-33.0); MEAN CORPUSCULAR VOLUME 91.8 fl (82.0-101.0); MEAN PLATELET VOLUME 9.7 fl (7.4-10.4); MONOCYTE # 0.9 10^3/ul (0.3-0.9); NEUTROPHIL # 4.5 10^3/ul (1.6-7.5); PLATELET COUNT 208 10^3/UL (140-415); RED BLOOD COUNT 3.42 10^6/ul (4.70-6.10); RED CELL DISTRIBUTION WIDTH 12.3 % (11.5-14.5); WHITE BLOOD COUNT 7.1 10^3/ul (4.8-10.8)
[2017-10-16 06:07] LABS: MAGNESIUM 1.9 mg/dl (1.7-2.5); PHOSPHORUS 3.7 mg/dl (2.5-4.9)
[2017-10-16 06:21] LABS: ALBUMIN 3.2 g/dl (3.3-4.9); ALBUMIN/GLOBULIN RATIO 0.88; BILIRUBIN,INDIRECT 0.3 mg/dl (0-1.1); BILIRUBIN,TOTAL 0.3 mg/dl (0.2-1.3); CREATININE 0.72 mg/dl (0.61-1.24); POTASSIUM 3.5 mmol/L (3.5-5.1); TOTAL PROTEIN 6.8 g/dl (6.1-8.1)
[2017-10-16 07:16] VITALS: BP 121/70; RESP 18
[2017-10-16] MEDS: ENOXAPARIN 40 MG/0.4 ML SYG SC SCH (08:40)
[2017-10-16] MEDS: POLYETHYLENE GLYCOL 17 GM PACKET PO SCH (08:40)
[2017-10-16] MEDS ORDERED: FAMOTIDINE 20 MG TAB PO SCH (09:00)
--- NOTE | 2017-10-16 10:51 | PDOCDIS ---
Discharge Instructions CONDITION Patient Condition: Stable HOME CARE INSTRUCTIONS: Special Diet: REGULAR FOLLOW UP/APPOINTMENTS Follow-up Plan "Please call [phone] if any of fever, nausea, vomiting, discharge from wound, wound redness, increase or sudden pain, blood in stool or vomit, or any other unusual signs or symptoms. Also, please call the same number in a few days to schedule an appointment for your follow up visit. Patient may remove dressings tomorrow. Showers OK starting tomorrow. No swimming , hot tub or bath for 2 weeks. No lifting more than 25 lbs for 8 weeks." 2.Follow up with primary care physician in 1 week If you don't have one please let someone know, we can give you resources that may help you pick one. You may also call your insurance company to assign one to you. Review your medication list with your nurse before leaving and if you need new prescriptions please let your nurse know. I may have made changes to your home medications or given you new prescriptions, please let your primary doctor know as well. Stay compliant with your medications and report any side effects to your PCP or pharmacist. Return to the ER if you have any concerns and cannot reach your doctors or call your insurance company, they usually have a nurse that can help you. 3. Call 911 or go to the nearest emergency room if experiencing loss of consciousness, dizziness, chest pain, shortness of breath, vomiting/abdominal pain, speech difficulties, motor weakness or any unusual symptoms. IBETH GARCIA NP Oct 16, 2017 10:51
[2017-10-16] MEDS ORDERED: METR250T PO (10:56)
[2017-10-16] MEDS ORDERED: CIPR500T4 PO (10:56)
[2017-10-16] MEDS ORDERED: DOCU-144 PO (10:56)
[2017-10-16] MEDS ORDERED: HYDR-3498 PO (10:56)
--- NOTE | 2017-10-16 10:58 | DS ---
Date/Time of Note Date/Time of Note DATE: 10/16/17 TIME: 10:58 Discharge Summary Admission/Discharge Info Admit Date/Time Oct 12, 2017 at 19:18 Discharge Date/Time Discharge Diagnosis 1. Cholecystitis, acute. Status post laparoscopic cholecystectomy. 2. Status post sepsis with underlying Bacteroides fragilis, likely secondary to #1. Patient Condition: Stable Consults , surgery. Procedures 10/12/2017. CT abdomen and pelvis. IMPRESSION: 1. Distended gallbladder demonstrating wall thickening and pericholecystic inflammatory change. This constellation of findings is highly suspicious for acute cholecystitis. Right upper quadrant ultrasound is recommended for confirmation. 2. Inflammatory change in the right midabdomen mesentery with a small volume of free fluid layering within the pelvis, likely reactive in nature. Thickening of the colon at the hepatic flexure adjacent to the gallbladder, also likely reactive in nature. 3. Nonspecific mild dilatation of the appendix measuring 8 mm in diameter without focal periappendiceal inflammatory change. Correlation with physical exam is recommended. 4. Periportal and portacaval adenopathy, likely reactive in nature. 10/13/2017. Laparoscopic cholecystectomy. Hospital Course This is a 27-year-old obese male within no significant past medical history, who presented to the emergency room with 3-4 day duration of abdominal pain. Patient was noted with acute cholecystitis by imaging and was admitted. He was also noted with sepsis with gram-negative bacteremia for which patient was continued on broad-spectrum IV antimicrobials. On 10/13/2017, patient had laparoscopic cholecystectomy. Patient tolerated the procedure well. He was started on a diet and was advanced as tolerated. He did not have any fever. Sepsis resolved. Repeat cultures were negative. At this time, there is no further inpatient workup indicated and patient is medically stable for discharge. As per ID recommendation, since patient was preoperatively noted with bacteroides fragilis in blood cultures 2 sets, recommendation was to continue Cipro and Flagyl for 7-10 days course. Disposition: Home. Follow-up with on Thursday after discharge. Patient verbalized discharge instructions. Approximately 60 minutes was spent in coordinating the discharge on this patient. Patient was seen in collaboration with Dr. Correa. Home Meds Active Scripts Metronidazole* (Flagyl*) 250 Mg Tablet, 250 MG PO Q8 for 7 Days, #21 TAB Prov:IBETH GARCIA V. INTERNAL MEDICINE VETERINARY TECHNICIAN 10/16/17 Ciprofloxacin Hcl* (Ciprofloxacin Hcl*) 500 Mg Tablet, 500 MG PO BID for 7 Days , #14 TAB Prov:IBETH GARCIA V. INTERNAL MEDICINE VETERINARY TECHNICIAN 10/16/17 Docusate Sodium* (Colace*) 100 Mg Capsule, 100 MG PO DAILY, #30 CAP Prov:IBETH GARCIA V. INTERNAL MEDICINE VETERINARY TECHNICIAN 10/16/17 Hydrocodone Bit-Acetaminophen (Hydrocodone Bit-APAP) 5-325MG Tablet, 1 TAB PO Q4H Y for PAIN LEVEL 4-7, #30 TAB Prov:IBETH GARCIA V. INTERNAL MEDICINE VETERINARY TECHNICIAN 10/16/17 Follow-up Plan "Please call [phone] if any of fever, nausea, vomiting, discharge from wound, wound redness, increase or sudden pain, blood in stool or vomit, or any other unusual signs or symptoms. Also, please call the same number in a few days to schedule an appointment for your follow up visit. Patient may remove dressings tomorrow. Showers OK starting tomorrow. No swimming , hot tub or bath for 2 weeks. No lifting more than 25 lbs for 8 weeks." 2.Follow up with primary care physician in 1 week If you don't have one please let someone know, we can give you resources that may help you pick one. You may also call your insurance company to assign one to you. Review your medication list with your nurse before leaving and if you need new prescriptions please let your nurse know. I may have made changes to your home medications or given you new prescriptions, please let your primary doctor know as well. Stay compliant with your medications and report any side effects to your PCP or pharmacist. Return to the ER if you have any concerns and cannot reach your doctors or call your insurance company, they usually have a nurse that can help you. 3. Call 911 or go to the nearest emergency room if experiencing loss of consciousness, dizziness, chest pain, shortness of breath, vomiting/abdominal pain, speech difficulties, motor weakness or any unusual symptoms. Primary Care Provider Care Physician No Primary Pending Labs Laboratory Tests Test 10/16/17 04:48 White Blood Count 7.110^3/ul (4.8-10.8) Red Blood Count 3.4210^6/ul (4.70-6.10) Hemoglobin 11.0g/dl (14.0-18.0) Hematocrit 31.4% (42.0-52.0) Mean Corpuscular Volume 91.8fl (82.0-101.0) Mean Corpuscular Hemoglobin 32.2pg (29.0-33.0) Mean Corpuscular Hemoglobin Concent 35.0g/dl (32.0-37.0) Red Cell Distribution Width 12.3% (11.5-14.5) Platelet Count 27309^3/UL (140-415) Mean Platelet Volume 9.7fl (7.4-10.4) Neutrophils % 63.0% (39.0-77.0) Lymphocytes % 21.8% (15.0-51.0) Monocytes % 12.0% (0.0-11.0) Eosinophils % 2.4% (0.0-7.0) Basophils % 0.4% (0.0-2.0) Nucleated Red Blood Cells % 0.0/100WBC (0.0-0.0) Neutrophils # 4.510^3/ul (1.6-7.5) Lymphocytes # 1.510^3/ul (0.8-2.9) Monocytes # 0.910^3/ul (0.3-0.9) Eosinophils # 0.210^3/ul (0.0-0.5) Basophils # 0.010^3/ul (0.0-0.1) Nucleated Red Blood Cells # 0.010^3/ul (0.0-0.0) Sodium Level 140mmol/L (135-144) Potassium Level 3.5mmol/L (3.5-5.1) Chloride Level 104mmol/L (97-110) Carbon Dioxide Level 28mmol/L (21-31) Anion Gap 12 (8-16) Blood Urea Nitrogen 6mg/dl (7-20) Creatinine 0.72mg/dl (0.61-1.24) Glucose Level 101mg/dl (70-220) Calcium Level 9.0mg/dl (8.4-10.2) Phosphorus Level 3.7mg/dl (2.5-4.9) Magnesium Level 1.9mg/dl (1.7-2.5) Total Bilirubin 0.3mg/dl (0.2-1.3) Direct Bilirubin 0.00mg/dl (0.00-0.20) Indirect Bilirubin 0.3mg/dl (0-1.1) Aspartate Amino Transf (AST/SGOT) 20IU/L (15-46) Alanine Aminotransferase (ALT/SGPT) 35IU/L (13-69) Alkaline Phosphatase 68IU/L (42-121) Total Protein 6.8g/dl (6.1-8.1) Albumin 3.2g/dl (3.3-4.9) Globulin 3.60g/dl (1.3-3.2) Albumin/Globulin Ratio 0.88 IBETH GARCIA V. INTERNAL MEDICINE VETERINARY TECHNICIAN Oct 16, 2017 10:58
--- NOTE | 2017-10-16 14:17 | PN ---
DATE: 10/16/2017 SUBJECTIVE: No acute changes. The patient is alert, feels good, looks comfortable. Denies pain. No fevers. LABORATORY: WBC 7.1, no shift, no bands. BUN 6, creatinine 0.72. MICROBIOLOGY: Blood culture on 10/12 grew Bacteroides fragilis. ANTIMICROBIALS: The patient is on Flagyl and Zosyn. PHYSICAL EXAMINATION: GENERAL: This is a well-developed, slightly obese, 27-year-old man who is alert, in no distress. HEENT: Head atraumatic, normocephalic. Sclerae anicteric. Buccal mucosa pink. NECK: Supple. CHEST: Rise symmetrical. Breath sounds clear. HEART: S1, S2. ABDOMEN: Soft, bowel tones present. EXTREMITIES: Without cyanosis. ASSESSMENT: 1. Bacteroides fragilis bacteremia secondary to #2. 2. Acute cholecystitis, status post laparoscopic cholecystectomy on 10/13/2017. 3. Obesity. PLAN: The patient remains stable. Anticipate discharge on oral ciprofloxacin and Flagyl for 7 to 1 0 more days. Dictated By: MINH GILBERT LOGGING ASSISTANT for KALPESH SIMEON MD NI/NTS Conf#: [id number] DID#: [id number] CC: NADER POOL MD;*EndCC*
--- NOTE | 2017-10-16 22:00 | PN ---
Date/Time of Note Date/Time of Note DATE: 10/16/17 TIME: 21:59 Assessment/Plan Lines/Catheters IV Catheter Type (from Nrs): Saline Lock Humphrey in Place (from Nrs): No Assessment/Plan Assessment/Plan [facility] Progress Note Date of Service: 10/16/2017 Location of Service: [facility] fourth floor Today's Assessment & Plan: Overall stable and doing well. Abdomen remains benign. No indications of major postoperative complications or wound problems. No indication for acute surgical intervention. Ok to d/c home. I explained all of the above to the patient and his mother and answered numerous questions. Patient and family appear to understand and agreed with plans. With above assessment, I've recommended the following for today: 1. D/c home 2. Please include the following in the patient's discharge instructions: "Please call [phone] if any of fever, nausea, vomiting, discharge from wound, wound redness, increase or sudden pain, blood in stool or vomit, or any other unusual signs or symptoms. Also, please call the same number in a few days to schedule an appointment for your follow up visit. Patient may remove dressings tomorrow. Showers OK starting tomorrow. No swimming , hot tub or bath for 2 weeks. No lifting more than 25 lbs for 8 weeks." Thank you very much for having me involved in the care of this very pleasant patient and wonderful family. If you have any questions, please feel free to contact me at [phone]. Nature of presenting problem: High severity Please note that, given the multiple number of diagnoses or management options, the moderate amount and/or complexity of data needed to be reviewed, and high risk of complications and/or morbidity or mortality, this qualifies as moderate complexity type of decision-making. Disclaimers: 1. Inadvertent spelling and grammatical errors are likely due to electronic health record (EHR)/dictation software used and do not reflect on the quality of delivered patient care. 2. The electronic timestamp recorded on this note does not necessarily reflect the actual date and time of the visit or the service. 3. Portions of this note may have been created through electronic templates and computer algorithms that might bring in information either from the system or from other physicians and providers. Please note that such information may or may not contain errors, the occurrence of which are outside of my control. In general (but not always) this happens either in the beginning or at the end of the note. The portion of the note that I have created are generally done in 1 continuous block of text, flanked at the beginning and at the end by " ", and entered into one field in the EHR. 4. There may be other unanticipated errors in the note that are outside of my control. I can only attest to the portions of the note that I have created. Updated clinical summary: Very pleasant 27-year-old gentleman with comorbidity of BMI 35, admitted through the emergency department at [facility] on 10/12/2017 with acute cholecystitis with B fragilis bacteremia. S/p a rather challenging laparoscopic cholecystectomy with complication of enterotomy (? transverse colon ) at time of insertion of the initial trocar was noted immediately and repaired laparoscopically with layered closure at [facility] 10/14/17. Final path: MICROSCOPIC DIAGNOSIS: Gallbladder, cholecystectomy: -- Acute suppurative cholecystitis. -- Cholelithiasis (gross only). -- No evidence of malignancy. Comorbidities: 1. Severe acute on chronic cholecystitis with B fragilis bacteremia. S/p a rather challenging laparoscopic cholecystectomy with complication of enterotomy (? transverse colon) at time of insertion of the initial trocar was noted immediately and repaired laparoscopically with layered closure at [facility] 10/14/17. 2. BMI 35 Subjective: No major events or complaints; no abd pain and under control with medications; no n/v/d; no sob or cp; + bowel activity; + activity Objective: Vitals: See below Exam: GENERAL: On exam, the patient was laying in bed and appeared to be comfortable and in no acute distress. ABDOMEN: Soft, nontender and nondistended. Incisions are clean, dry and intact without any evidence of obvious erythema, edema, discharge, or hernia. There are no peritoneal signs or guarding. SKIN: Skin appears to be pink and feels warm to touch. NEUROLOGIC: Patient is awake, alert, and follows commands appropriately. Exam/Review of Systems Vital Signs Vitals Vital Signs Date Time Temp Pulse Resp B/P Pulse Ox O2 Delivery O2 Flow Rate FiO2 10/16/17 07:16 98.0 85 18 121/70 96 10/14/17 12:00 Room Air 10/13/17 17:45 2.0 Intake and Output 10/15/17 10/15/17 10/16/17 15:00 23:00 07:00 Intake Total 250 ml 1800 ml 2050 ml Output Total 1400 ml Balance 250 ml 400 ml 2050 ml Results Result Diagram: 10/16/17 0448 10/16/17 0448 TAL ACKERMAN M.D. Oct 16, 2017 22:00
== END 2017-10-16 14:00 | disposition home or self-care (01) | DRG 854 ==
LOC: FTE 15:20 → MS1 19:18
PROVIDERS: ADMIT Internal Medicine; ATTEND Internal Medicine
PROC: 0DQL4ZZ Repair Transverse Colon, Percutaneous Endoscopic Approach (ICD-10-PCS; 2017-10-13)
PROC: 0FT44ZZ Resection of Gallbladder, Percutaneous Endoscopic Approach (ICD-10-PCS; principal; 2017-10-13 10:00)
DX: A41.9 Sepsis, unspecified organism (principal); K80.00 Calculus of gallbladder with acute cholecystitis without obstruction; E66.9 Obesity, unspecified; R59.9 Enlarged lymph nodes, unspecified; K38.9 Disease of appendix, unspecified; B96.6 Bacteroides fragilis [B. fragilis] as the cause of diseases classified elsewhere; Z68.35 Body mass index [BMI] 35.0-35.9, adult; Z87.19 Personal history of other diseases of the digestive system
CPT/HCPCS: 71010; 74176; 80053; 80061; 81001; 83036; 83605; 83690; 83735; 83880; 84100; 84443; 85025; 85610; 85730; 87040; 93005; C9113; J0295; J1170; J1650; J2250; J2370; J2405; J2543; J2710; J2765; J2795; J3010; J3480; J7030; J7040

== ENCOUNTER 2017-11-18 15:46 | Outpatient (CLI) | END 2017-11-18 17:00 | disposition home or self-care (01) ==